=== PATIENT | female | born 1955 | race Caucasian/White ===

== ENCOUNTER 2019-11-11 09:57 | Inpatient (IN) | payer BC ==
[~2019-11-11] VITALS: Ht 167.6 cm; Wt 157.9 kg
[2019-12-22] MEDS ORDERED: GLUCOPHAGE500 MG/TAB PO (10:48)
[2019-12-22] MEDS ORDERED: K-TAB20 PO (10:49)
[2019-12-22] MEDS ORDERED: COZAAR 50MG50 MG/TAB PO (10:52)
[2019-12-22] MEDS ORDERED: NORVASC 5MG5 MG/TAB PO (10:52)
[2019-12-22] MEDS ORDERED: HCTZ 25MG TAB25 MG PO (10:52)
[2019-12-22] MEDS ORDERED: ARMOUR THYROID15 MG PO (10:53)
[2019-12-22] MEDS ORDERED: OZEMPIC0.25 MG/0. SQ (10:54)
[2019-12-25] MEDS ORDERED: LEVOXYL0.15 MG PO (14:44)
[2019-12-25] MEDS ORDERED: MAGNESIUM500 MG PO (14:45)
[2019-12-25] MEDS ORDERED: VITAMIN D31000 I1 (14:47)
[2019-12-25] MEDS ORDERED: ASPIRIN 32325 MG/TAB PO (15:19)
[2019-12-25] MEDS ORDERED: SENOKOT8.6 MG PO (15:20)
[2019-12-29] MEDS ORDERED: INVANZ INJ1 G/VIAL IV (15:54)
[2019-12-29] MEDS ORDERED: NORCO 325 MG-7.1 TAB PO (16:00)
[2019-12-29] MEDS ORDERED: COZAAR 50MG50 MG/TAB PO (21:10)
[2019-12-29] MEDS ORDERED: NORVASC 5MG5 MG/TAB PO (21:10)
[2019-12-30] MEDS ORDERED: OZEMPIC0.25 MG/0. SQ ×2 (06:29→06:40)
[2020-01-06] MEDS ORDERED: INVANZ INJ1 G/VIAL IV (14:43)
[2020-01-08] MEDS ORDERED: FERRO-TIME325 MG PO (11:15)
[2020-01-08] MEDS ORDERED: TYLENOL 325MG325 MG PO (11:16)
[2020-01-08] MEDS ORDERED: ASPIRIN 32325 MG/TA1 PO (11:16)
[2020-01-08] MEDS ORDERED: MEN'S ONE DAIL1 EACH PO (11:17)
[2020-01-08] MEDS ORDERED: ZINC OXIDE 28GM TOP (11:17)
[2020-01-08] MEDS ORDERED: Desenex/Lotrimin AF TP (11:17)
[2020-01-08] MEDS ORDERED: NORCO 325 MG-51 TAB PO (11:22)
[2020-06-06] VITALS (9 sets, daily range): BP systolic 112–169; BP diastolic 61–82; PULSE 63–79; TEMP 97.5–98.5
[2020-06-06] MEDS ORDERED: HCTZ 25MG TAB25 MG PO (12:38)
[2020-06-06] MEDS ORDERED: CEPHALEXIN500 M1 PO (12:38)
[2020-06-06] MEDS ORDERED: SYNTHROID 0.10.15 MG PO (12:39)
[2020-06-06] MEDS ORDERED: COZAAR 50MG50 MG/TAB PO (12:39)
[2020-06-06] MEDS ORDERED: K-DUR 10 MEQ T10 MEQ PO (12:40)
[2020-06-06] MEDS ORDERED: GLUCOPHAGE500 MG/TAB PO (12:41)
--- NOTE | 2020-06-06 12:56 | NUR ---
Patient ate a pancake this morning at 0800. Andrea Grimes CRNA is notified and surgery will be delayed until 1600. Message is left for Dr. Hobbs on his cell phone to notify. Patient's COVID19 test has not yet resulted. Dr. Hobbs and Andrea Grimes are notified of this as well. Blood glucose is 212 pre-op and Andrea Grimes is notified. Orders received for LDSS insulin.
[2020-06-07] VITALS (20 sets, daily range): BP systolic 104–142; BP diastolic 55–87; PULSE 65–113; TEMP 97.6–98.8
[2020-06-07 06:32] LABS: HEMATOCRIT 26.8 % (37.0-47.0); HEMOGLOBIN 7.7 g/dl (12.5-16.0)
--- NOTE | 2020-06-07 10:09 | NUR ---
PATIENT RESTING IN BED. NEW 20 GAUGE IV WAS STARTED BY THIS NURSE FOR BLOOD ADMINISTRATION. BLOOD TRANSFUSION STARTED AND INFUSING AT 60 ML/HR. PATIENT TOLERATING WELL. PATIENT DENIES ANY PAIN THIS MORNING. POSITIVE PEDAL PULSES EQUAL BILATERALLY. CAP REFILL <3 SECONDS. CMS INTACT. TRACE EDEMA TO BLE NOTED. RIGHT HIP OCCLUSIVE DRESSING IN CD&I WITH ICE PACK IN PLACE. EDEMA TO RIGHT HIP NOTED. SCD TO LLE. CALL LIGHT WITHIN REACH.
--- NOTE | 2020-06-07 10:24 | NUR ---
PATIENT TOLERATING BLOOD TRANSFUSION WITHOUT ANY ADVERSE REACTIONS. VITALS STABLE. TRANSFUSION RATE INCREASED TO 120 ML/HR. WILL CONTINUE TO MONITOR.
--- NOTE | 2020-06-07 10:39 | NUR ---
TRANSFUSION RATE AT 120ML/HR. PATIENT TOLERATING WELL. PATIENT DROWSY AND TAKING A NAP. SNORING NOTED WHEN PATIENT FELL ASLEEP AND O2 SAT FELL TO 88%. PATIENT PLACED ON 1L OF OXYGEN VIA NASAL CANNULA TO NAP. VSS. DREW HOSE APPLIED TO BLE. CALL LIGHT WITHIN REACH. PATIENT DENIES ANY NEEDS AT THIS TIME.
--- NOTE | 2020-06-07 11:19 | NUR ---
First visit from the brake repairer air. No needs right now.
--- NOTE | 2020-06-07 12:15 | NUR ---
PATIENT ASSISTED UP TO THE BATHROOM. PATIENT DENIES PAIN AT THIS TIME. PATIENT IS TEARFUL AND OVERWHELMED WITH EVERYTHING GOING ON AND HER PREVISOU SURGERY COMPLICATIONS. PATIENT ASSISTED BACK TO BED. PATIENT IS SBA. PATIENT RECONNECTED TO VITALS MONITOR FOR BLOOD TRANSFUSION. PATIENT IS NOW PASSING FLATUS. CALL LIGHT WITHIN REACH. PATIENT DENIES ANY OTHER NEEDS AT THIS TIME.
--- NOTE | 2020-06-07 13:34 | NUR ---
BLOOD TRANSFUSION COMPLETE. PATIENT TOLERATED WELL WITHOUT ADVERSE REACTION. NORMAL SALINE RUNNING AND FLUSHING IV LINE.
--- NOTE | 2020-06-07 14:54 | NUR ---
SECOND UNIT OF PRBC STARTED AND TRANFUSING AT 60ML/HR. NURSE PRESENT AT THE BEDSIDE.
--- NOTE | 2020-06-07 15:11 | NUR ---
PATIENT TOLERATING BLOOD TRANSFUSION WITHOUT ANY ADVERSE REACTIONS. TRANFUSION RATE INCREASED TO 120 ML/HR. WILL CONTINUE TO MONITOR.
--- NOTE | 2020-06-07 17:34 | NUR ---
PATIENT BLOOD TRANSFUSION COMPLETE. PATIENT TOLERATED WELL WITHOUT ADVERSE REACTION.
[2020-06-07 19:00] LABS: HEMATOCRIT 28.5 % (37.0-47.0); HEMOGLOBIN 8.5 g/dl (12.5-16.0)
--- NOTE | 2020-06-07 20:00 | NUR ---
Pt currently resting in bed. Pt ambulated to the restroom well. Pt has her call light within reach.
--- NOTE | 2020-06-07 22:00 | NUR ---
Pt was given a snack at this time pt has no other concerns at this time. Pt has her call light within reach.
[2020-06-08 03:34] VITALS: BP 157/71; PULSE 79; TEMP 97.1
--- NOTE | 2020-06-08 06:21 | NUR ---
Pt currently resting in bed.Pt has no complaints of pain at this time. Pt has her call light within reach and her bed is in lowest position.
[2020-06-08 06:22] LABS: HEMATOCRIT 29.7 % (37.0-47.0); HEMOGLOBIN 8.8 g/dl (12.5-16.0)
[2020-06-08 07:25] VITALS: BP 140/66; PULSE 74; TEMP 98.5
--- NOTE | 2020-06-08 07:25 | NUR ---
Shift assessment complete. Pt awake and oriented sitting up in bed. 2 INT sites in right forearm, both free from swelling and redness. Dressing on right hip, clean, dry, and intact with 2 ice bags. DREW on left legd and pt took both SCDs off during the night. Pt states "I will get them back on as soon as I get up and have a BM." Pt denies any pain at this time and has no further needs. Call light is within reach.
[2020-06-08 10:09] VITALS: BP 138/67; PULSE 65; TEMP 97.6
[2020-06-08 11:54] LABS: BASO # 0.1 (0.0-0.2); BASO % 0.6 % (0.0-2.0); EOS # 0.1 (0.0-0.7); EOS % 0.8 % (0-4.0); GRAN # 9.4 (1.4-6.5); GRAN % 66.1 % (42.2-75.2); LYMPH # 3.3 (1.2-3.4); LYMPH % 23.3 % (20.0-51.0); MEAN CELL VOLUME 81 fl (80.0-100.0); MEAN CORPUSCULAR HEMOGLOBIN 23 pg (27.0-31.0); MEAN CORPUSCULAR HGB CONC 29 g/dl (33.0-37.0); MEAN PLATELET VOLUME 10.5 fl (7.4-10.4); MONO # 1.2 (0.1-0.6); MONO % 8.6 % (1.7-9.3); PLATELET COUNT 396 K/mm3 (130-400); RED BLOOD COUNT 3.81 M/mm3 (4.10-5.30); REDCELL DISTRIBUTION WIDTH-CV 16.5 % (11.5-14.5)
[2020-06-08 12:12] LABS: ALBUMIN 3.4 gm/dL (3.5-5.0); BILIRUBIN,TOTAL 0.8 mg/dL (0.0-1.0); CALCIUM 8.6 mg/dL (8.4-10.2); CREATININE, serum 0.68 (0.52-1.25); TOTAL PROTEIN 6.5 gm/dL (6.4-8.2)
--- NOTE | 2020-06-08 12:44 | NUR ---
Vancomycin Initial Dosing Pharmacy Note Ordering provider: Harshal Hobbs MD Indication/duration: Hip joint infection LABS: eCrCl ~ 100 mL/min, SCr 0.68 mg/dL, BMI 56 Recommendation: Loading dose: 2 grams reloaded 06/08/20 @ 13:00 Maintenance dose: 1.5 grams every 12 hours Trough goal: 15-20 ug/mL Pharmacy will continue to follow.
[2020-06-08 12:47] LABS: C-REACTIVE PROTEIN 1.7 mg/dL (0.0-0.9)
[2020-06-08 15:51] VITALS: BP 119/63; PULSE 76; TEMP 97.4
--- NOTE | 2020-06-08 18:44 | NUR ---
Patient has done well throughout the day, Has been up to restroom with stand by assist, steady gait with walker. Patient denies pain throughout the day. IV restarted to left AC, discontinued IVs to RAC and right forarm. Patient denies further needs at this time. Dressing to left hip changed this afternoon, cortes intact with sutures also in place. Patient having moderate amount of drainage from incision. Dressing changed to xeroform, gauze, ABD and foam tape. Patient denies further needs at this time. Reported off to production supervisor off shift.
--- NOTE | 2020-06-08 19:30 | NUR ---
RECEIVED CHANGE OF SHIFT REPORT FROM DAYSHIFT NURSE. SALINE LOCK TO LAC INTACT AND CLEAR. PATIENT DENIES ANY NEEDS AT TIME OF REPORT. DRSG CHANGE BY NURSE, PATIENT TOLERATED WELL. ICE TO R HIP.
--- NOTE | 2020-06-08 19:34 | NUR ---
UP WITH WALKER, ROM/STRENGTH DECREASED D/T R HIP SURGERY, PATIENT DENIES NUMBNESS/TINGLING TO EXTREMITIES. DENIES CHESTPAIN/SHORTNESS OF BREATH AT THIS TIME.
[2020-06-08 20:47] VITALS: BP 138/69; PULSE 74; TEMP 98.1
[2020-06-09] VITALS (7 sets, daily range): BP systolic 107–157; BP diastolic 58–97; PULSE 62–115; TEMP 97.8–98.9
[2020-06-09 06:24] LABS: HEMATOCRIT 29.5 % (37.0-47.0); HEMOGLOBIN 8.7 g/dl (12.5-16.0)
--- NOTE | 2020-06-09 07:20 | NUR ---
CHANGE OF SHIFT REPORT GIVEN TO DAY SHIFT NURSEEBEN.
--- NOTE | 2020-06-09 08:00 | NUR ---
Patient sitting up on edge of bed. Alert and oriented x 3. Assessment complete. Denies pain at this time. Occlusive dressing to left hip intact. INT to LAC without complications. Denies further needs at this time.
--- NOTE | 2020-06-09 09:15 | NUR ---
Client Sales And Service Officer met with the patient to complete initial intake. The patient lives in [place] with her , Jay. The patient has a cane and walker and is independent with ADLs. The patient's PCP is Dr. Marrero. [facility] [place]. The patient does not have advanced directives in the EMR but states they are complete and designate Jay. The patient plans to return home at discharge with services for home IV antiobiotics. The patient has had home IV antiobiotics in the past and would like to use the [employer] home health agency and same IV antibiotic infusion company. The patient to be getting a PICC later this day. SW contacted the patient's , Jay to discuss the discharge plan. Jay states they used [facility] out of [place]. SW looked at notes from last admission and they used [facility]. Referrals faxed. PT/OT ordered.
--- NOTE | 2020-06-09 09:20 | NUR ---
Patient called out to nurses station, states dressing is coming off of left hip. Redressed incision site with xeroform, gauze, abd and foam tape. Dressing had moderate amount of bloody drainage.
--- NOTE | 2020-06-09 11:08 | NUR ---
Aircraft Mechanic Armament contacted [facility] regarding the [facility]. She will contact this SW regarding acceptance once the team reviews the referral. The fax # . CHAPO contacted Trevor with [facility] # . Trevor will check the patient's insurance then inform CHAPO. SW inquired about providing the PICC dressing changes for the MALT ROASTER. They will provide the dressing kit for the MALT ROASTER. If they need another during the week they need to contact Trevor. The fax # . CHAPO collaborated the above information with the patient's nurse.
--- NOTE | 2020-06-09 11:45 | NUR ---
Follow up visit from the supervisor show operations. No needs right now.
--- NOTE | 2020-06-09 16:01 | NUR ---
Picc line placed by Adri
--- NOTE | 2020-06-09 18:37 | NUR ---
Patient has done well throughout the day, continued to denies pain throughout the day. Has been up to recliner throughout the day. Occlusive dressing remains intact. PICC line to DEBBIE without complications. Denies further needs at this time. Will report off to film processing shift supervisor.
--- NOTE | 2020-06-09 19:00 | NUR ---
RECEIVED CHANGE OF SHIFT REPORT FROM DAY SHIFT NURSE. PATIENT SLEEPING WHILE UP IN CHAIR DURING REPORT. PICC IN PLACE.
--- NOTE | 2020-06-09 20:00 | NUR ---
DECREASED ROM/STRENGTH TO RLE D/T SURGERY. DENIES NUMBNESS/TINGLING TO EXTREMITIES. DENIES CHEST PAIN/SHORTNESS OF BREATH. DENIES DISCOMFORT AT THIS TIME AND N/V. PICC IN PLACE.
[2020-06-10 03:33] VITALS: BP 160/89; PULSE 66; TEMP 97.6
--- NOTE | 2020-06-10 05:12 | NUR ---
RIGHT HIP DRESSING CHANGED D/T MED/DARK RED DRAINAGE FROM RIGHT HIP THAT PATIENT REPORTED HAD DRAINED WHILE VOIDING, OBSERVED MODERATE AMT RED DRAINAGE ON FLOOR, ALSO ON TOILET RING SEAT. PATIENT DENIES PAIN/DISCOMFORT TO RIGHT HIP AREA. NEW DRESSING APPLIED OF XEROFORM/4X4 GAUZE/ABD COVERED WITH FOAM TAPE, OBSERVED NO ACTIVE DRAINAGE FROM RIGHT HIP INCISION W/NO REDNESS OR SWELLING TO SURROUNDING SKIN, SKIN TEMP WARM, NONTENDER.
[2020-06-10 07:12] VITALS: BP 145/75; PULSE 68; TEMP 98.2
--- NOTE | 2020-06-10 07:41 | NUR ---
CHANGE OF SHIFT REPORT GIVEN TO DAY SHIFT NURSEDEYSI.
--- NOTE | 2020-06-10 08:00 | NUR ---
PATIENT IS A&O. VSS. DENIES PAIN. FOOD AND BEVERAGE ORDER CLERK NURSE REPORTED DRAINAGE FROM RIGHT HIP. RIGHT HIP DRESSING WAS CHANGED BEFORE SHIFT CHANGE WITH 4X4'S AND OCCLUSIVE TAPE. WOUND CULTURES PENDING. TTWB TO RLE. PATIENT IS STAND BY ASSIST. GAIT STEADY. HEAD TO TOE ASSESSMENT COMPLETE. NO C/O N/V. TOLERATING ADA DIET. BS ACHS. AM MEDS GIVEN. NO OTHER NEEDS. CALL LIGHT IN REACH.
--- NOTE | 2020-06-10 08:21 | NUR ---
Carlyn from [email or web address] [employer] reports the patient's insurance will cover 100% of the patient's antibiotics.
[2020-06-10 12:13] VITALS: BP 138/68; PULSE 76; TEMP 98.3
--- NOTE | 2020-06-10 14:15 | NUR ---
AUGUSTO FROM [facility], CALLED AFTER TALKING WITH LAB. SOUNDS LIKE THE OR CULTURES WERE NOT COMPLETED AND SENT OFF PROPERLY. ONLY THE GRAM STAIN AND FUNGAL CULTURES (SENT TO [facility]) WERE DONE. FUNGAL CULTURES STILL PENDING. TO COME SEE PATIENT LATER JL
[2020-06-10 15:01] VITALS: BP 131/64; PULSE 72; TEMP 98.6
--- NOTE | 2020-06-10 15:21 | NUR ---
[facility] with [facility] this Relief Cook regarding the patient's insurance. Leon states that [facility] denied [facility] due to the patient having Medicare as primary. The private pay rate for a nurse is $150 an hour. CHAPO met with the patient to discuss insurance and the [facility] information. The patient reports that she has not finished her social security application so she is not signed up for Medicare. The patient to contact her insurance to correct the information. CHAPO revisted the discharge plan and her need for IV antibiotics. The patient is not willing to private pay for a nurse from [facility]. She would rather just have her antibiotic at [facility] in [place]. CHAPO contacted the IV infusion department [phone] and faxed referral to . Brit at [place] did receive the referral. The patient's culture's are not back from the lab so it is now known which antibotic and dose is needed. Update: The patient contacted [facility] and states that they will cover [facility]. CHAPO contacted Leon with [facility]. She will check the insurance benefit again. CHAPO discussed the plan with the patient. The patient is agreeable to going to [place] for her IV antibiotics if the HOUSING SPECIALIST cannot get approval for [facility]. Weekend CHAPO to follow up with [facility] to inquire about insurance acceptance. If they can accept, contact [facility] and send orders to both. If [facility] cannot be used, the patient will go to [facility] for her IV antibiotic. There will need to be orders for the antibiotic, duration, dose, PICC line dressing changes, and any labs that then to be drawn and when and where to send them. CHAPO collaborated the above information with the patient's nurse.
--- NOTE | 2020-06-10 16:30 | NUR ---
AT BEDSIDE. REPORTED OFF TO ROSIE SALGUERO.
[2020-06-10 19:18] VITALS: BP 139/90; PULSE 64; TEMP 98.8
--- NOTE | 2020-06-10 20:00 | NUR ---
Received report from ROSIE Franco. Pt is currently sitting up in the chair eating her dinner. Pt has no complaints at this time. She has her call light within reach.
--- NOTE | 2020-06-10 22:00 | NUR ---
Pt has been ambulating from the bed and to the restroom. Pt still has no complaints of pain. Pt dressing is clean dry and intact. Pt has her call light within reach.
[2020-06-11] VITALS (7 sets, daily range): BP systolic 137–156; BP diastolic 68–86; PULSE 65–100; TEMP 97.3–99
--- NOTE | 2020-06-11 01:34 | NUR ---
Pt currently sleeping in bed. Pt did wake up while vitals were being done and requested some fresh water at this time. Pt has her call light within reach.
--- NOTE | 2020-06-11 08:00 | NUR ---
PATIENT IS A&O. VSS. PATIENT MOVING AROUND IN ROOM INDEPENDENTLY WITH WALKER. REMOVED HIP DRESSING, NOTED MODERATE, SEROSANGUANOUS DRAINAGE TO 4X4'S GAUZE. RIGHT HIP INCISION IS WELL APPROXIMATED WITH STAPLE & TENSION SUTURES INPLACE. APPLIED 4X4'S & OCCLUSIVE TAPE. PATIENT SITTING UP IN BEDSIDE CHAIR. NO C/O PAIN. NOTED +2 EDEMA TO RIGHT HIP, POST OP SWELLING IS STABLE AND UNCHANGED. TTWB TO RLE. HEAD TO TOE ASSESSMENT WNL. AM MEDS GIVEN. BREAKFAST TRAY AT BEDSIDE. IV ABX INFUSING INTO RIGHT UPPER ARM PICC. NO OTHER NEEDS. CALL LIGHT IN REACH.
--- NOTE | 2020-06-11 11:24 | NUR ---
AUGUSTO WITH ORTHO AT BEDSIDE. NO CHANGES
--- NOTE | 2020-06-11 16:04 | NUR ---
SW update confirmed [employer] can be billed with [facility]. They have worked with patient previously. Authorizaton Pending, willing to accept Saturday. Will need to fax orders and medications.
--- NOTE | 2020-06-11 22:00 | NUR ---
PT UP IN RECLINER MOST OF EVENING. UP TO BATHROOM WITH USE OF WALKER AND TTWB TO RIGHT FOOT. DENIES PAIN. DRESSING TO RIGHT HIP CLEAN, DRY AND INTACT. BILAT PULSES IN FEET STRONG AND PALPABLE. BLOOD SUGAR AT HS WAS 218 AND RECEIVED 2UNITS NOVOLOG. PICC LINE FLUSHES WITH NO DIFFICULTY. VERY PLEASANT.
[2020-06-12 04:32] VITALS: BP 148/80; PULSE 64; TEMP 98.3
--- NOTE | 2020-06-12 06:07 | NUR ---
PT UP TO BR WITH USE OF WALKER. STEADY GAIT. DENIES PAIN. REPORTS SHE HAD A GOOD NIGHT. DRESSING REMAINS CLEAN, DRY AND INTACT. CALL LIGHT WITHIN REACH.
[2020-06-12 07:14] LABS: BASO % 0.4 % (0.0-2.0); EOS # 0.5 (0.0-0.7); EOS % 5.1 % (0-4.0); GRAN # 6.2 (1.4-6.5); GRAN % 68.2 % (42.2-75.2); LYMPH # 1.6 (1.2-3.4); LYMPH % 17.6 % (20.0-51.0); MEAN CELL VOLUME 79 fl (80.0-100.0); MEAN CORPUSCULAR HGB CONC 29 g/dl (33.0-37.0); MEAN PLATELET VOLUME 10.6 fl (7.4-10.4); MONO # 0.8 (0.1-0.6); MONO % 8.3 % (1.7-9.3); PLATELET COUNT 309 K/mm3 (130-400); RED BLOOD COUNT 3.84 M/mm3 (4.10-5.30); REDCELL DISTRIBUTION WIDTH-CV 17.2 % (11.5-14.5)
[2020-06-12 07:25] LABS: HEMATOCRIT 30.4 % (37.0-47.0); HEMOGLOBIN 8.8 g/dl (12.5-16.0); MEAN CORPUSCULAR HEMOGLOBIN 23 pg (27.0-31.0)
[2020-06-12 07:26] LABS: ALBUMIN 3.3 gm/dL (3.5-5.0); BILIRUBIN,TOTAL 0.6 mg/dL (0.0-1.0); CALCIUM 8.7 mg/dL (8.4-10.2); CREATININE, serum 0.6 (0.52-1.25); TOTAL PROTEIN 6.2 gm/dL (6.4-8.2)
[2020-06-12 07:35] VITALS: BP 147/77; PULSE 71; TEMP 98.4
[2020-06-12] MEDS ORDERED: ASPI325T6 PO (10:14)
[2020-06-12] MEDS ORDERED: TYLENOL 500MG500 MG PO (10:16)
[2020-06-12] MEDS ORDERED: ROXICODONE 55 MG/TAB PO (10:16)
[2020-06-12 11:02] VITALS: BP 145/82; PULSE 71; TEMP 98.8
[2020-06-12 16:20] VITALS: BP 141/67; PULSE 70; TEMP 98.2
--- NOTE | 2020-06-12 18:04 | NUR ---
Patient resting in bed at this time. Patient remains alert and oriented, answers questions appropriately. Patient has denied pain today, no complaints of nausea or loose stools. Patient is independent in the room with her walker. Bulky dressing to right hip in place, gauze and occlusive tape dressing in place. A small amount of drainage leaked with position change, dressing reinforced with gauze, ABD pad, tape. Patient denies needs at this time, call light within reach.
--- NOTE | 2020-06-12 20:00 | NUR ---
Report received, assumed care for past due accounts clerk. Assessment complete. VS stable. A&Ox3. Denies pain/nausea/shortness of breath. Dressing change complete due to complete saturation of current one. [place]/retention sutures intact. No redness to site. Applied xerofoam/4x4s/ABDs/foam tape per dr order. Plan of care discussed for this shift to include HS meds/calling for needs/concerns. Verbalizes understanding/denies questions/concerns. Call light in reach. WIll monitor.
[2020-06-12 20:33] VITALS: BP 132/87; PULSE 71; TEMP 98.5
[2020-06-13 00:04] VITALS: BP 147/75; PULSE 73; TEMP 97.9
--- NOTE | 2020-06-13 00:30 | NUR ---
Resting in bed watching TV. Denies pain/nausea/shortness of breath. VS stable. PICC to right upper arm flushes without difficulty. Denies needs. Call light in reach. Will monitor.
[2020-06-13 05:06] VITALS: BP 145/73; PULSE 72; TEMP 98.1
--- NOTE | 2020-06-13 05:45 | NUR ---
PT slept off and on this shift. Denied pain/nausea/shortness of breath. VS remained stable. PICC line to right upper arm flushes without difficulty-good blood return. Voiding without difficulty. Call light in reach. Will monitor.
[2020-06-13 07:14] VITALS: BP 152/66; PULSE 69; TEMP 97.7
--- NOTE | 2020-06-13 08:00 | NUR ---
PATIENT IS A&O. VSS. DENIES PAIN IN RLE. RIGHT HIP DRESSING IS CD&I WITH OCCLUSIVE TAPE. PATIENT INDEPENDENT IN ROOM WITH WALKER. TTWB TO RLE. PT/OT CONSULTED. NO C/O N/V. IV ABX INFUSING INTO RIGHT UPPER ARM PICC. BREAKFAST TRAY AT BEDSIDE. AM MEDS GIVEN. HEAD TO TOE ASSESSMENT WNL. NO OTHER NEEDS AT THIS TIME. CALL LIGHT IN REACH. PATIENT HOPING TO DISCHARGE HOME WITH HOME HEALTH LATER TODAY.
[2020-06-13 11:31] VITALS: BP 133/56; PULSE 63; TEMP 97.9
--- NOTE | 2020-06-13 13:33 | NUR ---
The patient discharged home today, 06/13 with [facility] (nursing and wound care) in [facility] for IV antibiotics. Discharge orders faxed. The patient chose [facility] agency in [facility] because she has had them in the past. Leon with [facility] reports they received authorization will be able to start services 06/14. Trevor with [facility] will be able to deliver the patient's antibiotics. Trevor reports he will be able to either physically assist or via telehealth with the first dose this night at 9:00pm this day. The patient's has experience with IV antiobiotics and will assist the patient. [facility] will draw labs and do PICC line dressing changes. [facility] will provide the dressing change supplies. SW contacted [facility] for looking at the referral for the patient and informed them the patient decided to go home with [facility]. There are no additional needs at this time.
--- NOTE | 2020-06-13 13:55 | NUR ---
PATIENT DISCHARGING HOME VIA WC TO PERSONAL VEHICLE WITH . GAVE DISCHARGE INSTRUCTIONS, CHANGED RIGHT HIP DRESSING, SENT EXTRA DRESSING SUPPLIES, GAVE BOTH IV ANTIBIOTIC PRIOR TO DISCHARGE, AND DISCUSSED F/U APTS. ANSWERED ALL QUESTIONS/CONCERNS. PATIENT DISCHARGED WITH RIGHT UPPER ARM PICC LINE INPLACE, WRAPPED WITH ACEWRAP. ESCORTED OUT AND DISCHARGED.
== END 2020-06-13 13:55 | disposition home health service (06) | DRG 465 ==
LOC: JCC 12-01 09:45 → SURG 06-06 09:45 → INPTSU 06-06 11:54 → SURG 06-06 11:54
PROVIDERS: Internal Medicine Infectious Disease; Physician Assistant; ADMIT Orthopaedic Surgery
PROC: 0JBL0ZZ Excision of Right Upper Leg Subcutaneous Tissue and Fascia, Open Approach (ICD-10-PCS; 2020-06-06)
PROC: 02HV33Z Insertion of Infusion Device into Superior Vena Cava, Percutaneous Approach (ICD-10-PCS; 2020-06-06)
PROC: 0JBM0ZZ Excision of Left Upper Leg Subcutaneous Tissue and Fascia, Open Approach (ICD-10-PCS; principal; 2020-06-06 15:00)
DX: T84.51XA Infection and inflammatory reaction due to internal right hip prosthesis, initial encounter (principal); Z90.710 Acquired absence of both cervix and uterus; Z90.49 Acquired absence of other specified parts of digestive tract; I10 Essential (primary) hypertension; E11.9 Type 2 diabetes mellitus without complications; E03.9 Hypothyroidism, unspecified; Z96.651 Presence of right artificial knee joint; Z96.641 Presence of right artificial hip joint
CPT/HCPCS: A9284; C1751; J0692; J0696; J1100; J1815; J2250; J2405; J2704; J3370; J7030; J7050; J7120; P9016

== ENCOUNTER 2019-12-22 10:23 | Outpatient (CLI) | payer BC ==
[~2019-12-22] VITALS: Ht 167.6 cm; Wt 160.0 kg
[2019-12-22] MEDS ORDERED: GLUCOPHAGE500 MG/TAB PO (10:48)
[2019-12-22] MEDS ORDERED: K-TAB20 PO (10:49)
[2019-12-22] MEDS ORDERED: NORVASC 5MG5 MG/TAB PO (10:52)
[2019-12-22] MEDS ORDERED: HCTZ 25MG TAB25 MG PO (10:52)
[2019-12-22] MEDS ORDERED: COZAAR 50MG50 MG/TAB PO (10:52)
[2019-12-22] MEDS ORDERED: ARMOUR THYROID15 MG PO (10:53)
[2019-12-22] MEDS ORDERED: OZEMPIC0.25 MG/0. SQ (10:54)
[2019-12-22 11:29] VITALS: BP 138/74; PULSE 112; TEMP 98
--- NOTE | 2019-12-22 12:00 | NUR ---
patient teaching by Adri VELEZ on Picc line, area is wrapped with kishore. pt up in w/c with standby assist and discharged via w/c to car with huband
== END 2019-12-22 12:00 | disposition home or self-care (01) ==
LOC: EUO 10:23
DX: Z95.828 Presence of other vascular implants and grafts (principal); Z96.641 Presence of right artificial hip joint
CPT/HCPCS: C1751

== ENCOUNTER 2019-12-25 14:20 | Inpatient (IN) | payer BC ==
[~2019-12-25] VITALS: Ht 167.6 cm; Wt 155.7 kg
[~2019-12-25 14:20] MED LIST: ARMOUR THYROID15 MG PO; COZAAR 50MG50 MG/TAB PO; GLUCOPHAGE500 MG/TAB PO; HCTZ 25MG TAB25 MG PO; K-TAB20 PO; NORVASC 5MG5 MG/TAB PO; OZEMPIC0.25 MG/0. SQ
[2019-12-25] MEDS ORDERED: LEVOXYL0.15 MG PO (14:44)
[2019-12-25] MEDS ORDERED: MAGNESIUM500 MG PO (14:45)
[2019-12-25] MEDS ORDERED: VITAMIN D31000 I1 (14:47)
[2019-12-25] MEDS ORDERED: ASPIRIN 32325 MG/TAB PO (15:19)
[2019-12-25] MEDS ORDERED: SENOKOT8.6 MG PO (15:20)
[2019-12-25 15:29] VITALS: BP 145/67; PULSE 80; TEMP 98.9
--- NOTE | 2019-12-25 15:47 | NUR ---
ASSESSMENTS COMPLETE,VSS, PT SITTING UP IN RECLINER. JOSEFA CLIFTON PA IN TO SEE PT. CONTACTED DR. MCHUGH AND TROY WOODARD.
--- NOTE | 2019-12-25 16:11 | NUR ---
REINFORCED DRESSING WITH ABD AND HYPAFIX TAPE AFTER TROY WOODARD INSPECTED WOUND.
[2019-12-25 16:28] LABS: BASO # 0.1 (0.0-0.2); BASO % 0.3 % (0.0-2.0); EOS # 0.1 (0.0-0.7); EOS % 0.7 % (0-4.0); GRAN # 11.1 (1.4-6.5); GRAN % 76.4 % (42.2-75.2); HEMOGLOBIN 10.3 g/dl (12.5-16.0); LYMPH % 13.8 % (20.0-51.0); MEAN CELL VOLUME 90 fl (80.0-100.0); MEAN CORPUSCULAR HEMOGLOBIN 27 pg (27.0-31.0); MEAN CORPUSCULAR HGB CONC 31 g/dl (33.0-37.0); MEAN PLATELET VOLUME 9.7 fl (7.4-10.4); MONO # 1.1 (0.1-0.6); MONO % 7.4 % (1.7-9.3); PLATELET COUNT 521 K/mm3 (130-400); RED BLOOD COUNT 3.77 M/mm3 (4.10-5.30); REDCELL DISTRIBUTION WIDTH-CV 14.7 % (11.5-14.5)
--- NOTE | 2019-12-25 16:29 | NUR ---
PICC LINE ASSESSED HAD POSITIVE BLOOD RETURN, CAPS CHANGED. PT TOLERATED WELL.
[2019-12-25 16:30] LABS: HEMATOCRIT 33.8 % (37.0-47.0)
[2019-12-25 16:34] LABS: INR 1.2 (0.8-3.0); PROTHROMBIN TIME 13.4 SECONDS (9.7-12.8)
[2019-12-25 16:47] LABS: ERYTHROCYTE SEDIMENTATION RATE 32 mm/hr (0-30)
[2019-12-25 16:48] LABS: ALBUMIN 3.1 gm/dL (3.5-5.0); BILIRUBIN,TOTAL 0.4 mg/dL (0.0-1.0); C-REACTIVE PROTEIN 4.9 mg/dL (0.0-0.9); CALCIUM 8.7 mg/dL (8.4-10.2); CREATININE, serum 0.53 (0.52-1.25); POTASSIUM 3.8 mmol/L (3.4-5.0); TOTAL PROTEIN 7.1 gm/dL (6.4-8.2)
[2019-12-25 16:53] LABS: PRE ALBUMIN 16.6 mg/dL (17.6-36.0)
--- NOTE | 2019-12-25 19:16 | NUR ---
report to ENOC VELEZ
[2019-12-25 19:47] LABS: MUCOUS Present /lpf; PH 6 (5-8); URINE APPEARANCE Clear; URINE BACTERIA None Seen /hpf; URINE BILIRUBIN Negative (NEGATIVE); URINE BLOOD Negative (NEGATIVE); URINE COLOR Yellow; URINE GLUCOSE Negative (NEGATIVE); URINE KETONE Negative (NEGATIVE); URINE LEUKOCYTE ESTERASE Trace (NEGATIVE); URINE NITRATE Negative (NEGATIVE); URINE PROTEIN(semi-quant) Negative (NEGATIVE); URINE RBC 0-2 /hpf; URINE UROBILINOGEN Negative (NEGATIVE)
[2019-12-25 19:49] VITALS: BP 141/57; PULSE 82; TEMP 99.5
--- NOTE | 2019-12-25 20:00 | NUR ---
Report received. 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 Assessment complete. A&Ox3. VS stable. Denies pain/shortness of breath/nausea. PICC to right upper arm-flushes without difficulty. Dressing to right hip-ABDs/tape-old drainage noted. Has been re-enforced. Right lower extremity noted to have +2 edema-scaling/flaking. Fresh ice pack applied. Plan of care discussed for NPO at midnight. Verbalizes understanding. Call light in reach. Will monitor.
[2019-12-25 20:36] LABS: COLLECTION METHOD CLEAN CATCH
[2019-12-26] VITALS (485 sets, daily range): BP systolic 86–591; BP diastolic 53–87; PULSE 68–93; TEMP 95.6–98.4; O2SAT 89–100
--- NOTE | 2019-12-26 06:39 | NUR ---
Rested off and on this shift. Received percocet for pain x2. No nausea/shortness of breath. VS remained stable. NPO since midnight. Voiding without difficulty. Denies needs. Call light in reach. Will monitor.
--- NOTE | 2019-12-26 08:30 | NUR ---
Patient resting in bed at this time. Patient is alert and oriented, answers questions appropriately. Dressing to right hip is intact, moderate amount of dranage visible. Patient reports pain is controlled at this time, is able to transfer to bedside commode with assist of one. Surgical consent signed, BHARGAVI mccloud. Patient denies further needs at this time, call light within reach.
--- NOTE | 2019-12-26 09:02 | NUR ---
Patient left the floor with pre op via bed.
[2019-12-26 15:58] LABS: ARTERIAL BLD GAS O2 SATURATION 98.1 % (92-100); ARTERIAL BLD GAS TCO2 CT 22.7; ARTERIAL BLOOD GAS BASE EXCESS -4.4 (-2-2); ARTERIAL BLOOD GAS HCO3 21.4 meq/L (22-26); ARTERIAL BLOOD GAS PCO2 42.4 mmHg (35-45); ARTERIAL BLOOD GAS pH 7.32 (7.35-7.45)
[2019-12-26 15:59] LABS: ARTERIAL BLOOD GAS PO2 128.8 mmHg (80-100)
[2019-12-26 16:09] LABS: MEAN CELL VOLUME 94 fl (80.0-100.0); MEAN CORPUSCULAR HGB CONC 31 g/dl (33.0-37.0); MEAN PLATELET VOLUME 10.1 fl (7.4-10.4); PLATELET COUNT 534 K/mm3 (130-400); REDCELL DISTRIBUTION WIDTH-CV 14.6 % (11.5-14.5)
[2019-12-26 16:13] LABS: HEMOGLOBIN 9.5 g/dl (12.5-16.0); MEAN CORPUSCULAR HEMOGLOBIN 29 pg (27.0-31.0)
[2019-12-26 16:26] LABS: ALBUMIN 2.2 gm/dL (3.5-5.0); BILIRUBIN,TOTAL 0.5 mg/dL (0.0-1.0); CALCIUM 7.6 mg/dL (8.4-10.2); CREATININE, serum 0.7 (0.52-1.25); POTASSIUM 3.8 mmol/L (3.4-5.0)
[2019-12-26 16:46] LABS: ANISOCYTOSIS 2+; BAND 4 % (0-10); LYMPHOCYTE 6 % (20.0-51.0); METAMYELOCYTE 1 % (0-0); MYELOCYTE 2 % (0-0); NEUTROPHILS 83 % (42.0-75.2); PLATELET ESTIMATE INCREASED (NORMAL)
--- NOTE | 2019-12-26 17:58 | NUR ---
PT ARRIVED FROM PACU, REPORT RECIEVED FROM KAILEE. PT C/O 05/07 PAIN NO NUMBNESS OR TINGLING ON LEFT LET, DRAIN AND WOUNDVAC IN PLACE, BP 101/68 AT THIS TIME WITH TEMP 95.6, WILL CONTINUE TO MONITOR AND UPDATE PROVIERS NEEDED 1 UNIT PRBC'S REMAINING TO ADMIN.
[2019-12-26 18:13] LABS: HEMATOCRIT 28.4 % (37.0-47.0); HEMOGLOBIN 8.9 g/dl (12.5-16.0)
--- NOTE | 2019-12-26 19:30 | NUR ---
Patient resting quietly in bed at this time. BP 86/63 with MAP of 68; other vitals within normal limits. Patient reports R hip and leg pain as 10/10. PRN dilauded administered and ice pack provided. Patient's is at the bedside. Wound vac and accordian drain present to the right hip; incision is covered with a tegaderm dressing and is clean, dry, and intact. Pedal and post tibial pulses are palpable and 2+. Some edema noted to the BLE. Drainage within accordian drain is bright red. A unit of blood is currently infusing to the red port of the right upper arm PICC; vancomycin is infusing to purple. Patient and family encouraged to ask questions; no further needs noted at this time. Will continue to monitor.
[2019-12-27] VITALS (702 sets, daily range): BP systolic 93–129; BP diastolic 42–67; PULSE 71–89; TEMP 97.5–98.5; O2SAT 83–100
[2019-12-27 01:01] LABS: HEMATOCRIT 22.2 % (37.0-47.0)
--- NOTE | 2019-12-27 01:59 | NUR ---
PT NOT ON BIPAP IT IS NOT NEEDED. SHE IS ON 3 LPM NC NILO WELL WITH NO DISTRESS NOTED AT THIS TIME.
--- NOTE | 2019-12-27 02:17 | NUR ---
Notified [facility] of patient's hemoglobin of 7.0 after receiving four units of blood. Patient's vitals are stable; she is asymptomatic. Received instructions to monitor and reassess labs in AM.
[2019-12-27 04:29] LABS: BASO # 0.1 (0.0-0.2); BASO % 0.4 % (0.0-2.0); GRAN # 18.2 (1.4-6.5); GRAN % 84.2 % (42.2-75.2); LYMPH # 1.5 (1.2-3.4); LYMPH % 6.9 % (20.0-51.0); MEAN CORPUSCULAR HGB CONC 32 g/dl (33.0-37.0); MEAN PLATELET VOLUME 9.9 fl (7.4-10.4); MONO # 1.4 (0.1-0.6); MONO % 6.6 % (1.7-9.3); RED BLOOD COUNT 3.09 M/mm3 (4.10-5.30); REDCELL DISTRIBUTION WIDTH-CV 15.1 % (11.5-14.5)
[2019-12-27 04:34] LABS: HEMATOCRIT 27.4 % (37.0-47.0); HEMOGLOBIN 8.8 g/dl (12.5-16.0); MEAN CELL VOLUME 89 fl (80.0-100.0); MEAN CORPUSCULAR HEMOGLOBIN 28 pg (27.0-31.0); PLATELET COUNT 383 K/mm3 (130-400)
[2019-12-27 04:39] LABS: CALCIUM 7.6 mg/dL (8.4-10.2); CREATININE, serum 0.81 (0.52-1.25); POTASSIUM 3.8 mmol/L (3.4-5.0)
--- NOTE | 2019-12-27 07:45 | NUR ---
Report given to ROSIE Rivero.
--- NOTE | 2019-12-27 11:56 | NUR ---
REPORT CALLED TO THEA VELEZ ON SURGICAL UNIT
[2019-12-27 12:26] LABS: HEMOGLOBIN 8.2 g/dl (12.5-16.0)
--- NOTE | 2019-12-27 12:27 | NUR ---
Plan to move to Surgical and Screen for IPR. SW met with patient about plan. Patient reports that she was talking with her PC about IPR. Patient reports that she resides in [place] with her spouse Jay . Patient shares that she uses a cane and that it is currently misplaced somewhere in the hospital. Patient shares that her is also the DPOA. Patient denies the use of any other DME. Patient shares that her choice would be to complete the IPR here and then go home. IPR needs to be screen for the patient. Will continue to follow
--- NOTE | 2019-12-27 13:21 | NUR ---
PT TRANSFERRED VIA BED TO SURGICAL ROOM 322. PT'S BELONGINGS TRANSFERRED WITH PATIENT. CONTACT MADE WITH STAFF UPON TRANSFER.
--- NOTE | 2019-12-27 17:20 | NUR ---
Patient received from ICU this afternoon from [facility]. Bedside commode used upon arrival 3 assist. Patient slow to move. Patient walker used & gaitbelt. Picc to Rue. Right hip wound vac to 125 mmg suction. Hemovac to compression. 2 tabs [place] for pain. I reviewed with her that we will avoid dilaudid and use po medication for pain, she was agreeable. Scds ble. Ice pack provided. Will jennifer.
[2019-12-27 18:27] LABS: HEMATOCRIT 24.3 % (37.0-47.0); HEMOGLOBIN 7.8 g/dl (12.5-16.0)
--- NOTE | 2019-12-27 19:45 | NUR ---
Report received. Assumed care for x ray technologist. Assessment complete. VS stable. A&Ox3. Denies pain/shortness of breath. States she is not nauseated but has no appetite and trying to eat makes her gag. Offered Ensure shake-will call when ready for it. Dressing to right hip-wound vac/tegaderm to 125mmg of suction. Hemovac drain to compression-scant bloody drainage. Plan of care discussed for this shift to include pain control/calling for needs. Requesting "a break" from SCDs. WIll remove for now. Denies any other questions/concerns. Call light in reach. Will monitor.
--- NOTE | 2019-12-28 03:00 | NUR ---
Resting in bed-watching TV. C/O pain to lower back. Rating pain 7/10 described as ache-norco given per dr order. Denies nausea/shortness of breath. VS have remained stable. Wound vac at 125mmg suction. Hemovac drainage bloody. Tolerating PO. REfused SCDs. Denies any other needs. Will monitor.
[2019-12-28 03:34] VITALS: BP 143/57; PULSE 110; TEMP 98.5
--- NOTE | 2019-12-28 05:00 | NUR ---
Guaman cath DCd at this time. Removed 10mls sterile water from balloon. Tip intact. Tolerated well. Will monitor.
--- NOTE | 2019-12-28 06:17 | NUR ---
Up to commode at this time with three assist/walker/gait belt.
[2019-12-28 06:54] LABS: BASO # 0.1 (0.0-0.2); BASO % 0.4 % (0.0-2.0); EOS # 0.1 (0.0-0.7); EOS % 0.4 % (0-4.0); GRAN # 13.6 (1.4-6.5); GRAN % 79.7 % (42.2-75.2); LYMPH # 1.7 (1.2-3.4); MEAN CELL VOLUME 92 fl (80.0-100.0); MEAN CORPUSCULAR HGB CONC 31 g/dl (33.0-37.0); MONO # 1.4 (0.1-0.6); MONO % 8.4 % (1.7-9.3); PLATELET COUNT 409 K/mm3 (130-400); RED BLOOD COUNT 2.77 M/mm3 (4.10-5.30); REDCELL DISTRIBUTION WIDTH-CV 15.3 % (11.5-14.5)
[2019-12-28 06:56] LABS: HEMATOCRIT 25.4 % (37.0-47.0); HEMOGLOBIN 7.9 g/dl (12.5-16.0); MEAN CORPUSCULAR HEMOGLOBIN 29 pg (27.0-31.0)
[2019-12-28 07:10] LABS: CREATININE, serum 1.04 (0.52-1.25); POTASSIUM 3.7 mmol/L (3.4-5.0)
[2019-12-28 07:29] VITALS: BP 117/40; PULSE 87; TEMP 97.9
--- NOTE | 2019-12-28 08:00 | NUR ---
Patient sittin up in bed, eating breakfast. Hemovac to right hip with bloody driange and wound vac to right hip noted. Picc line to DEBBIE. Edema to BLE +2 pitting. Denies further needs at this time.
--- NOTE | 2019-12-28 08:14 | NUR ---
Contacted Pharmacy about vanc trough level.
--- NOTE | 2019-12-28 08:51 | NUR ---
Vancomycin Follow-up Pharmacy Note Current regimen: VANCOMYCIN 2 G Q12H Vancomycin trough: 23.7 Adjustments: DECREASE TO 1.75G Q12H. TROUGH 12/28 @ 2130
--- NOTE | 2019-12-28 10:23 | NUR ---
Patient sitting up in recliner, was just up with physical therapy, requested pain medication, meds given per orders.
[2019-12-28 11:26] VITALS: BP 132/77; PULSE 80; TEMP 98.2
--- NOTE | 2019-12-28 12:33 | NUR ---
First visit from the rn international. No needs right now.
--- NOTE | 2019-12-28 15:29 | NUR ---
Vocal Artist spoke with Chelsy, IPR Director about consult. Chelsy advised they are able to accept, just waiting on insurance. SW to continue to follow.
[2019-12-28 15:34] VITALS: BP 149/89; PULSE 88; TEMP 98.6
[2019-12-28 15:43] VITALS: BP 141/62; PULSE 81; TEMP 98.2
--- NOTE | 2019-12-28 18:26 | NUR ---
Patient has done well throughout the day. Denies pain at this time. Hemovac continues to have bloody output. Wound vac maintained. PICC line to DEBBIE without complications. Denies further needs at this time. Will report off to maintenance mechanic 2nd shift.
[2019-12-28 19:20] VITALS: BP 103/82; PULSE 95; TEMP 99
--- NOTE | 2019-12-28 19:56 | NUR ---
Pt. sitting up in bed at this time. Pt. is A&OX3, assessment complete. PICC to rt. upper arm patent, Abx infusing per orders. Pt. rated pain at a 5 to rt. knee. Gave pain meds per orders. Dressing to rt. hip CDI, wound vac and hemovac noted with bloody drainage. Pt. denies further needs, call light within reach.
[2019-12-29] VITALS (11 sets, daily range): BP systolic 123–139; BP diastolic 62–90; PULSE 71–91; TEMP 97.4–98.6
--- NOTE | 2019-12-29 00:30 | NUR ---
PT STATES THAT SHE DOES NOT WEAR A CPAP. THEREFORE NO CPAP IS BROUGHT UP FOR HER AND SHE IS ON ROOM AIR NILO WELL WITH NO DISTRESS NOTED AT THIS TIME. WILL CONTTINUE TO MONITOR AND ASSESS
[2019-12-29 07:04] LABS: BASO # 0.1 (0.0-0.2); BASO % 0.6 % (0.0-2.0); EOS # 0.1 (0.0-0.7); GRAN # 8.7 (1.4-6.5); GRAN % 74.9 % (42.2-75.2); LYMPH # 1.6 (1.2-3.4); LYMPH % 13.6 % (20.0-51.0); MEAN CELL VOLUME 94 fl (80.0-100.0); MEAN CORPUSCULAR HGB CONC 31 g/dl (33.0-37.0); MEAN PLATELET VOLUME 9.9 fl (7.4-10.4); MONO # 1.1 (0.1-0.6); MONO % 9.3 % (1.7-9.3); PLATELET COUNT 365 K/mm3 (130-400); REDCELL DISTRIBUTION WIDTH-CV 15.7 % (11.5-14.5)
[2019-12-29 07:23] LABS: CALCIUM 7.8 mg/dL (8.4-10.2); CREATININE, serum 1.07 (0.52-1.25); POTASSIUM 3.3 mmol/L (3.4-5.0)
[2019-12-29 07:28] LABS: HEMATOCRIT 22.5 % (37.0-47.0); HEMOGLOBIN 6.9 g/dl (12.5-16.0); MEAN CORPUSCULAR HEMOGLOBIN 29 pg (27.0-31.0)
--- NOTE | 2019-12-29 07:35 | NUR ---
Notified VANCE Sharma of critical lab value
--- NOTE | 2019-12-29 07:50 | NUR ---
Patient in bed resting. Alert and oriented x 3. Assessment complete. Picc to Chelita without complications. Wound vac and hemovac to right hip. Hemovac with large amount of bloody drainage. Edema noted to BLE. Denies further needs at this time.
--- NOTE | 2019-12-29 09:30 | NUR ---
Dr. Montanez in to see patient. Wound vac changed, Hemovac discontinued. Rea with edges well approximated. Denies further needs at this time.
--- NOTE | 2019-12-29 09:30 | NUR ---
PICC intact right upper arm. With sterile technique right upper arm PICC dressing change done with insertion site cleansed with ChloraPrep 1, chlorhexidine impregnated disc applied, skin prep, StatLock, and Tegaderm applied. X-ray Tegaderm applied on top of dressing. No signs or symptoms of IV complications noted. No concerns voiced.
--- NOTE | 2019-12-29 10:09 | NUR ---
Chief Development Officer met with patient to review discharge plan. Plan is for [facility] upon discharge. CHRISTIAN Valentino Director advised that she has approval from patient's insurance. SW to continue to follow.
--- NOTE | 2019-12-29 14:19 | NUR ---
Patient up to bedside comode, stand by assist with walker. Denies further needs at this time.
[2019-12-29] MEDS ORDERED: INVANZ INJ1 G/VIAL IV (15:54)
[2019-12-29] MEDS ORDERED: NORCO 325 MG-7.1 TAB PO (16:00)
[2019-12-29] MEDS ORDERED: NORVASC 5MG5 MG/TAB PO (21:10)
[2019-12-29] MEDS ORDERED: COZAAR 50MG50 MG/TAB PO (21:10)
[2019-12-30] MEDS ORDERED: OZEMPIC0.25 MG/0. SQ ×2 (06:29→06:40)
== END 2019-12-29 18:07 | DRG 467 ==
LOC: SURG 14:20 → ICU 12-26 15:00 → SURG 12-27 13:14
PROVIDERS: Family Medicine; Orthopaedic Surgery; Physician Assistant; ADMIT Hospitalist
PROC: 0SR902A Replacement of Right Hip Joint with Metal on Polyethylene Synthetic Substitute, Uncemented, Open Approach (ICD-10-PCS; principal; 2019-12-26 10:00)
PROC: 0SP90JZ Removal of Synthetic Substitute from Right Hip Joint, Open Approach (ICD-10-PCS; 2019-12-26 10:00)
DX: T84.51XA Infection and inflammatory reaction due to internal right hip prosthesis, initial encounter (principal); Z68.43 Body mass index [BMI] 50.0-59.9, adult; T81.32XA Disruption of internal operation (surgical) wound, not elsewhere classified, initial encounter; D62 Acute posthemorrhagic anemia; E03.9 Hypothyroidism, unspecified; I10 Essential (primary) hypertension; E11.9 Type 2 diabetes mellitus without complications; Z96.651 Presence of right artificial knee joint; G89.29 Other chronic pain; B95.4 Other streptococcus as the cause of diseases classified elsewhere; B95.61 Methicillin susceptible Staphylococcus aureus infection as the cause of diseases classified elsewhere; M19.90 Unspecified osteoarthritis, unspecified site; E66.01 Morbid (severe) obesity due to excess calories; Y83.8 Other surgical procedures as the cause of abnormal reaction of the patient, or of later complication, without mention of misadventure at the time of the procedure; Z79.84 Long term (current) use of oral hypoglycemic drugs; Z79.82 Long term (current) use of aspirin; Z85.828 Personal history of other malignant neoplasm of skin; Z85.528 Personal history of other malignant neoplasm of kidney; R09.02 Hypoxemia; I95.81 Postprocedural hypotension; T41.45XA Adverse effect of unspecified anesthetic, initial encounter; E87.6 Hypokalemia
CPT/HCPCS: 99222-AI; 99232-AI; 99233-AI; 99239; A4314; A6550; A9284; C1776; J0692; J1170; J1815; J2250; J2543; J2704; J3010; J3370; J7030; J7040; P9016

== ENCOUNTER 2019-12-29 16:47 | Inpatient (IN) | payer BC ==
[~2019-12-29] VITALS: Ht 167.6 cm; Wt 154.2 kg
[~2019-12-29 16:47] MED LIST changes: +ASPIRIN 32325 MG/TAB PO; +INVANZ INJ1 G/VIAL IV; +LEVOXYL0.15 MG PO; +MAGNESIUM500 MG PO; +NORCO 325 MG-7.1 TAB PO; +SENOKOT8.6 MG PO; +VITAMIN D31000 I1
--- NOTE | 2019-12-29 18:15 | NUR ---
PATIENT ADMIT TO ROOM 340 FROM SURGICAL UNIT VIA W/C, UP IN CHAIR, CHAIR ALARM ON.
--- NOTE | 2019-12-29 18:30 | NUR ---
Patient transfered to [facility]. Oriented to room. Reported off to hotel night auditor.
--- NOTE | 2019-12-29 18:45 | NUR ---
PATIENT UP TO BSC, X1 ASST W/GB & WW. WOUND VAC IN PLACE/FUNCTIONING. OBSERVED EXCORIATED AREA TO TOP PART OF GLUTEAL FOLD, PATIENT STATES STAFF HAS BEEN APPLYING BARRIER CREAM TO EXCORIATED AREA THAT SHE IS NOT SURE IS HELPING MUCH SINCE IT WAS STARTED TODAY.
[2019-12-29 18:54] VITALS: BP 143/61; PULSE 79; TEMP 98.9
--- NOTE | 2019-12-29 19:50 | NUR ---
Up to bedside commode x1 assist walker and gait belt. Assessment complete. Lungs clear. Heart sounds normal. Bowels active x4. Pulses present throughout. Right lower extremity edema +1. PICC to right upper arm without complications. Wound vac to right hip in place. Suction on and reddish drainage in tubing. Reports 7/10 pain with ambulation in right hip. Denies other needs at this time. Call light in reach.
[2019-12-29] MEDS ORDERED: NORVASC 5MG5 MG/TAB PO (21:10)
[2019-12-29] MEDS ORDERED: COZAAR 50MG50 MG/TAB PO (21:10)
--- NOTE | 2019-12-30 00:30 | NUR ---
Patient up to bedside commode x1 assist and returned to bed. Denies other needs. Call light in reach.
[2019-12-30 03:39] VITALS: BP 143/97; PULSE 96; TEMP 98.7
--- NOTE | 2019-12-30 03:53 | NUR ---
Patient up to bedside commode. Provided with PRN norco for 7/10 right hip pain. Denies other needs at this time. Call light in reach.
[2019-12-30 04:59] VITALS: BP 143/97; PULSE 96; TEMP 98.7
[2019-12-30 05:34] VITALS: BP 143/97; PULSE 96; TEMP 98.7
[2019-12-30] MEDS ORDERED: OZEMPIC0.25 MG/0. SQ ×2 (06:29→06:40)
[2019-12-30 07:08] LABS: BASO # 0.1 (0.0-0.2); BASO % 0.5 % (0.0-2.0); EOS # 0.1 (0.0-0.7); EOS % 1.2 % (0-4.0); GRAN # 8.1 (1.4-6.5); GRAN % 75.5 % (42.2-75.2); LYMPH # 1.4 (1.2-3.4); LYMPH % 12.7 % (20.0-51.0); MEAN CELL VOLUME 92 fl (80.0-100.0); MEAN CORPUSCULAR HGB CONC 31 g/dl (33.0-37.0); MEAN PLATELET VOLUME 9.8 fl (7.4-10.4); MONO % 9.3 % (1.7-9.3); PLATELET COUNT 386 K/mm3 (130-400); RED BLOOD COUNT 2.68 M/mm3 (4.10-5.30)
[2019-12-30 07:09] LABS: HEMATOCRIT 24.7 % (37.0-47.0); HEMOGLOBIN 7.7 g/dl (12.5-16.0); MEAN CORPUSCULAR HEMOGLOBIN 29 pg (27.0-31.0)
[2019-12-30 07:20] LABS: CALCIUM 8.1 mg/dL (8.4-10.2); CREATININE, serum 0.98 (0.52-1.25); MAGNESIUM 2.2 mg/dL (1.6-2.3); POTASSIUM 3.7 mmol/L (3.4-5.0)
--- NOTE | 2019-12-30 07:24 | NUR ---
Report given to ROSIE Martinez
--- NOTE | 2019-12-30 14:25 | NUR ---
Patient attended all therapies today. Tolerated IV antibiotic this morning. Wound vac dressing came loose and had to be replaced. Ivone/ROSIE and this nurse spent a good 45 minutes to an hour reapplying this vac. Patient was given prn pain meds prior to changing out this wound vac. Dr. Montanez reported that he will want to put on a new wound vac tomorrow morning at 7 AM and will need to have 3 to 4 people to assist him with this undertaking. The [employer] Incision [employer] System and canister has been delivered to [facility]. Charge nurse was made aware of Dr. Montanez request and she said that she would pass this along in report. Dietary spoke with patient today. See new order per Dr. Mccauley to start a multivitamin for patient. Hgb was at 7.7 this morning see new order to start Iron replacement per Dr. Mccauley.
--- NOTE | 2019-12-30 16:19 | NUR ---
Journeyman Millwright met with patient as she is new to [facility]. Patient lives in [place] with her Jay (ph#[phone]) and her primary care physician is Dr. Davey. Patient obtains medications from [facility] in [place] with no difficulties. Patient has a cane and walker but prefers to use her walker. Patient advised that Jay assists her with bathing and dressing. Patient also has [facility] for Home Health. SW provided copy of team conference notes to patient and advised discharge date will be a week from today, 01/06/20. SW contacted patient's , Jay and scheduled family meeting for 01/04/20 @ 3705. CHAPO contacted Jad at [facility] and faxed updates. CHAPO to continue to follow.
[2019-12-30 16:47] VITALS: BP 155/79; PULSE 83; TEMP 98.8
--- NOTE | 2019-12-30 19:30 | NUR ---
PATIENT RESTING IN BED DURING CHANGE OF SHIFT REPORT FROM DAY SHIFT NURSEARYAN. BED ALARM ON. WOUND VAC IN PLACE AND PATENT DURING REPORT. DECREASED ROM AND STRENGTH TO RLE D/T RECENT HIP SURGERY.
--- NOTE | 2019-12-31 00:05 | NUR ---
PATIENT SLEEPING, DOES NOT AWAKEN WHEN DOOR TO ROOM IS OPENED BY STAFF. BREATHING OBSERVED NONLABORED AND EVEN. BED ALARM ON.
[2019-12-31 03:24] VITALS: BP 164/69; PULSE 77; TEMP 98
--- NOTE | 2019-12-31 07:23 | NUR ---
PATIENT RESTING IN BED DURING CHANGE OF SHIFT REPORT GIVEN TO DAY SHIFT NURSECAMILLE. BED ALARM ON.
--- NOTE | 2019-12-31 12:49 | NUR ---
PATIENT WOUND VAC FULL WITH 450MLS OF DARK RED BLOOD PRESENT. WOUND VAC STOPPED. CANISTER CHANGED. WOUND VAC RE-STARTED. DR. MCHUGH TO BE BY THIS AFTERNOON TO CHANGE WOUND VAC TO A NEW MACHINE. PATIENT RATING HER PAIN A 3/10 ON A 0-10 SCALE AND DESCRIBES THE PAIN DULL IN NATURE AND IT IS WORSE WITH MOVEMENT. PT PRESENT IN THE ROOM. NO NEEDS AT THIS TIME.
--- NOTE | 2019-12-31 13:29 | NUR ---
BED ALARM GOING OFF. UNPON ENTRY TO THE ROOM THE PATIENT HAD A SMALL LIQUID INCONTINENT EPISODE OF STOOL. PATIENT CLEANED UP. PATIENT AMBULATED TO BATHROOM WITH STAFF. PATIENT MOVES WELL WITH ONE ASSIST AND WALKER. PATIENT IMPATIENT AND IMPULSIVE. PATIENT HAD MEDIUM SIZED LOOSE STOOL ON TOILET. PERICARE PROVIDED. BARRIER CREAM APPLIED TO SACRUM. PATIENT ASSISTED BACK TO BED. PATIENT COMPLAINING OF NAUSEA AND IS SITTING AT THE EDGE OF THE BED WITH A BASIN. CALL LIGHT WITHIN REACH.
--- NOTE | 2019-12-31 13:45 | NUR ---
RIGHT HIP WOUND VAC REMOVED BY DR. MCHUGH WITH THE ASSISTANCE OF THIS NURSE. PORTABLE WOUND VAC TEGADERM/FOAM DRESSING APPLIED OVER INCISION. AIRSTRIP APPLIED TO DORSAL PORTION OF INCISION. PORTABLE WOUND VAC TO LOW CONTINUOUS SUCTION. PATIENT REPOSITIONED IN BED. PATIENT TOLERATED WELL.
--- NOTE | 2019-12-31 16:10 | NUR ---
PATIENT AMBULATED WITH THIS NURSE TO THE RESTROOM. PATIENT WIPED SELF. PATIENT NOT WEARING PANTS. PATIENT ASSISTED BACK INTO BED. PATIENT NEEDS ASSISTANCE WITH GETTING LEGS INTO BED, OTHERWISE PATIENT TRANSFERS SELF. PATIENT WOUND VAC LEAKING AIR. WOUND VAC DRESSING REINFORCED WITH TEGADERM STRIPS. PRESENT AT THE BEDSIDE. PATIENT DENIES ANY OTHER NEEDS AT THIS TIME.
[2019-12-31 17:16] VITALS: BP 157/69; PULSE 118; TEMP 98.8
--- NOTE | 2019-12-31 19:36 | NUR ---
Received report from ROSIE Park. Pt currently sitting up in bed. When looking over he wound vac with the nurse she stated that she reinforced the dressing because there was a small amount of drainage. At this time there is no drainage at this time. Pt is comfortable in bed and has her call light within reach.
--- NOTE | 2019-12-31 19:36 | NUR ---
REPORT GIVEN TO ROSIE ALAMO.
--- NOTE | 2019-12-31 21:00 | NUR ---
Pt called requesting to go to the bathroom. At this time I noticed drainage from the wound vac site. The dressing was reinforced with a new Air strip, and a half of a ABD dressing to prevent drainage. There was also a large tegaderm placed over dressing at this time. I also noted that the wound vac canister looked full. When to change the canister and noticed that the canister did not fit. Contacted charge nurse and house supervisior at this time. We were able to open a new woundvac box and get a canister that did fit. Everything seems to be working fine. Will monitor for drainage.
--- NOTE | 2020-01-01 00:35 | NUR ---
Pt called out to go to the restroom, pt had no drainage noted at this time. Pt did state that the wound vac wasn't making noise as it was before. I was able to move it around a little and it began to work. I informed the charge nurse and housetrailer servicer. supervisor fabrication is going to look for some new canisters for the wound vac just in case we end up needed them. Pt has her call light within reacha and she was also given fresh ice water and a diet sprite at this time. Call light itis within reach and her bed is in lowest position.
[2020-01-01 05:58] VITALS: BP 148/76; PULSE 62; TEMP 97.8
--- NOTE | 2020-01-01 07:26 | NUR ---
Reported off to ROSIE Park. Pt is currently sitting up in the chair. debone processing supervisor was contacted to get new canisters for the wound vac because the ones that we have don't fit. Pt is dressed and ready for therapy. She has her call light within reach.
--- NOTE | 2020-01-01 10:25 | NUR ---
PATIENT WOUND VAC HAS BEEN FULL SINCE APPROXIMATELY [id number]. DIRECTOR OF CREATIVE SERVICES NURSE UNABLE TO GET NEW CANISTERS FROM THE PLANS EXAMINER. THE CANISTERS ORDERED FOR THE HOME VAC ARE THE WRONG TYPE. ADAPTER PIECE UTILIZED TO CONNECT THE HOME VAC DRESSING TO THE HOSPITAL WOUND VAC. ONCE RE-CONNECTED APPROXIMATELY 50 MLS OF BLOODY RETURN INTO CANISTER AND ABSORBED BY THE POWDER IN THE CANISTER. FOAM DRESSING COMPRESSED WITHOUT ANY LEAKS. WOUND VAC TO LOW CONTINUOUS SUCTION.
--- NOTE | 2020-01-01 11:05 | NUR ---
Admission QIM scores were reviewed by the team. Code of 3 chosen for toileting hygiene was determined by team discussion to be the most usual performance before interventions for this patient during the assessment period. Code of 3 chosen for toilet transfers was determined by team discussion to be the most usual performance for this patient during the assessment period.--Chelsy Guzmán, PD
--- NOTE | 2020-01-01 11:45 | NUR ---
THIS NURSE SPOKE WITH VANCE NICOLE FOR DR. MCHUGH. THIS NURSE INFORMED THAT DR. TOLEDO WILL BE BACK ON SATURDAY TO RESUME PATIENT CARE. HOME WOUND VAC CANISTERS TO BE ADDRESSED BY [facility] ON SATURDAY FOR PENDING DISCHARGE.
--- NOTE | 2020-01-01 16:24 | NUR ---
Protozoologist followed up with patient prior to the weekend. Patient reports she is waiting to hear what the decision is about her wound vac. Patient denies any further questions or concerns at this time. SW to continue to follow.
[2020-01-01 16:49] VITALS: BP 154/77; PULSE 85; TEMP 97.7
--- NOTE | 2020-01-01 19:36 | NUR ---
PATIENT ASSISTED TO BATHROOM BY STAFF. WOUND VAC IN PLACE AND DRAINING LIGHT RED DRAINAGE TO WOUND VAC CANISTER. ~100 ML OUT SINCE WOUND VAC WAS RE-CONNECTED AT 10:25AM. PATIENT STATES THAT THE TRAMADOL IS HELPING WITH THE PAIN. REPORT GIVEN TO ROSIE ANGELA.
--- NOTE | 2020-01-02 04:12 | NUR ---
Patient has been up to the restroom two times this shift. Patient is able to get herself out of bed and to the restroom with minimal help from staff with walker. Patient is able to take care of own toileting needs. Patient has a PICC in the right upper arm blood return noted. Patient also has a wound vac to the right hip set at 125mm outpt so far as been 75mL this shift. At this time patient has stated pain in the right knee is increasing, pain medication given and ice pack applied.
[2020-01-02 05:53] VITALS: BP 126/85; PULSE 77; TEMP 98.1
--- NOTE | 2020-01-02 14:45 | NUR ---
Patient refuses to put on her slip proof socks. Patient also refuses to put on gait belt at times and prefers to not wear it. This nurse continues to educate her on the reason for using the gait belt and that it is IPR protocol. Will continue to educate her on protocols.
[2020-01-02 18:30] VITALS: BP 140/87; PULSE 112; TEMP 99.6
--- NOTE | 2020-01-02 21:11 | NUR ---
APOORVA NOTE: PT AOX4. PLEASANT. REPORTS INCISION PAIN 4 TO 5/10 STINGY TO RT HIP WOUND VAC SITE. SUCTION INTACT WITH 250 MLS SEROSANGUINOUS DRAINAGE CURRENTLY IN CANNISTER. DAYSHIFT CHANGED DRESSING AROUND 1630, PT REPORTS CANNISTER NOT BEEN CHANGED WITH DRESSING THUS UNSURE OF TOTAL IN SHIFT. BLE EDEMA RT 3+ WITH LT 2+ PITTING. REPORTS CHRONIC LOOSE STOOLS WITH ONE THIS EVENING. LCTA. HRRR. DENIES CP, TIERNEY, N/V. ON AIR MATRESS AND REFUSED Q2 TURNS SHE REPORTS SHE CAN GET OUT OF BED BUT NOT TURN
[2020-01-03 05:36] VITALS: BP 136/81; PULSE 107; TEMP 98.3
--- NOTE | 2020-01-03 07:26 | NUR ---
WOUND VAC AMOUNT AT BEGGING OF SHIFT 250MLS, INCREASED TO 50MLS AT END OF SHIFT
--- NOTE | 2020-01-03 07:30 | NUR ---
Bedside shift report received from ROSIE Ma. PT in chair at side of bed eating breakfast, wound vac cannister at 300 ml of sanguinous drainage. will continue to monitor.
--- NOTE | 2020-01-03 08:18 | NUR ---
assessment charted. PT resting in chair, watns to rest today. Pain well controlled with PRN norco. Denies needs. PICC to DEBBIE flushes and good blood return. RLE wound vac draining continuous at 125 mmhg. Pt refusing TEDs and SCDs at this time. CMS intact to RLE. Will continue to monitor.
--- NOTE | 2020-01-03 12:05 | NUR ---
Upon entry into patients room to give noon meds pt was in tears. when prompted she shared that she is frustrated with her current situation. Frustrated with the wound vac and wanting the home vac on instead of this larger vac. She feels that food just doesn't taste good and she struggles to eat solid foods. Denies other issues but appears symptomatically depressed.
--- NOTE | 2020-01-03 15:52 | NUR ---
Pt called for bathroom upon entry alarm on wound vac going off. Resealed wound vac with large tegaderm where leak was located, in pannus area. Seal recaptured. Pt agreeable. Will continue to monitor.
[2020-01-03 17:59] VITALS: BP 149/85; PULSE 80; TEMP 97.7
--- NOTE | 2020-01-03 18:15 | NUR ---
Wound vac seal leaking again, re-sealed again. Pt resting in chair at side of bed eating supper, will give bedside shift report to nightshift nurse who will resume care.
--- NOTE | 2020-01-03 19:50 | NUR ---
PATIENT RESTING IN BED DURING CHANGE OF SHIFT REPORT FROM DAY SHIFT NURSETYLER. BED ALARM ON.
--- NOTE | 2020-01-03 23:00 | NUR ---
PATIENT DENIES ANY NEEDS FOR PAIN MEDS WITH HS MEDS, BED ALARM ON.
--- NOTE | 2020-01-04 01:23 | NUR ---
PATIENT SLEEPING DOES NOT AWAKEN WHEN ROOM IS ENTERED BY STAFF. WOUND VAC ON AND NOT ALARMING.
[2020-01-04 04:24] VITALS: BP 152/87; PULSE 114; TEMP 98.5
--- NOTE | 2020-01-04 04:51 | NUR ---
PATIENT REQUESTING "LIGHT PAIN MED", SEE eMAR FOR MED GIVEN. BED ALARM ON.
--- NOTE | 2020-01-04 06:21 | NUR ---
OBSERVED DRY HEAVES AFTER USING BATHROOM, WITH IV ABX INFUSING, PATIENT STATING SHE THINK SHE IS HAVING NAUSEA WITH ABX. COOL WET WASHCLOTH APPLIED TO BACK OF NECK THAT PATIENT STATES HAD HELPED SOME WITH NAUSEA. DENIES SHORTNESS OF BREATHING/PROBLEMS SWALLOWING/ITCHING/RASH AT THIS TIME.
[2020-01-04 06:58] LABS: BASO % 0.5 % (0.0-2.0); EOS # 0.2 (0.0-0.7); EOS % 2.3 % (0-4.0); GRAN # 5.5 (1.4-6.5); GRAN % 70.9 % (42.2-75.2); LYMPH # 1.2 (1.2-3.4); LYMPH % 15.8 % (20.0-51.0); MEAN CELL VOLUME 94 fl (80.0-100.0); MEAN CORPUSCULAR HGB CONC 30 g/dl (33.0-37.0); MEAN PLATELET VOLUME 9.7 fl (7.4-10.4); MONO # 0.8 (0.1-0.6); PLATELET COUNT 388 K/mm3 (130-400); RED BLOOD COUNT 2.86 M/mm3 (4.10-5.30); REDCELL DISTRIBUTION WIDTH-CV 15.9 % (11.5-14.5)
[2020-01-04 06:59] LABS: HEMATOCRIT 26.8 % (37.0-47.0); HEMOGLOBIN 8.1 g/dl (12.5-16.0); MEAN CORPUSCULAR HEMOGLOBIN 28 pg (27.0-31.0)
[2020-01-04 07:12] LABS: ALBUMIN 2.3 gm/dL (3.5-5.0); BILIRUBIN,TOTAL 0.4 mg/dL (0.0-1.0); C-REACTIVE PROTEIN 1.8 mg/dL (0.0-0.9); CALCIUM 8.1 mg/dL (8.4-10.2); CREATININE, serum 0.88 (0.52-1.25); POTASSIUM 3.3 mmol/L (3.4-5.0); TOTAL PROTEIN 5.3 gm/dL (6.4-8.2)
--- NOTE | 2020-01-04 07:24 | NUR ---
PATIENT RESTING IN BED DURING CHANGE OF SHIFT REPORT GIVEN TO DAY SHIFT NURSEARYAN. BED ALARM ON.
[2020-01-04 08:24] LABS: ERYTHROCYTE SEDIMENTATION RATE 15 mm/hr (0-30)
--- NOTE | 2020-01-04 09:42 | NUR ---
Call placed to Dr. Bhat for ID consult.
--- NOTE | 2020-01-04 12:03 | NUR ---
Dr. Mccauley called regarding low potassium - see new order for one time dose of 40 mg potassium PO per Dr. Mccauley. Will continue to monitor.
--- NOTE | 2020-01-04 13:32 | NUR ---
CHAPO attended a family meeting with the patient and her , Jay. Also present was IPR Director, PT, and OT. IPR Director, Chelsy, started by explaining the purpose of the meeting. PT/OT discussed the patient's progress. Chelsy then discussed how discharge date may tentatively be changed to later in the week, depending on Dr. Hobbs's recommendations. The patient has a wound vac. The patient and her report that they were receiving home health for the IV antibiotics and went to outpatient PT once in [place] before being admitted. The team answered all questions. SW awaiting Dr. Hobbs's recommendations and will continue to follow.
--- NOTE | 2020-01-04 15:30 | NUR ---
PICC intact right upper arm. With sterile technique right upper arm PICC dressing change done with insertion site cleansed with ChloraPrep 1, chlorhexidine impregnated disc applied, skin prep, StatLock, and Tegaderm applied. No signs or symptoms of IV complications noted. No concerns voiced.
--- NOTE | 2020-01-04 16:34 | NUR ---
Patient resting in bed at this time, by her side. Patient and waiting to see when Dr. Smith will be arriving to look at wound. Patient attended all therapies today. Denies questions at this time.
[2020-01-04 18:17] VITALS: BP 125/52; PULSE 126; TEMP 99.2
--- NOTE | 2020-01-04 19:00 | NUR ---
PATIENT RESTING IN BED DURING CHANGE OF SHIFT REPORT FROM DAY SHIFT NURSE, ARYAN. BED ALARM ON. PATIENT'S AT BED SIDE WAITING FOR DR TOLEDO TO SEE PATIENT REGARDING CHECKING ON RIGHT HIP INCISION/WOUND VAC SET UP. CONTACTED TROY WOODARD, CERTIFIED DIETARY MANAGER ORTHO, TO CHECK IF DR TOLEDO IS GOING TO ROUND WITH NO CONFIRMATION OF DR TOLEDO BEING ABLE TO ROUND TODAY BUT MOST LIKELY TOMORROW W/DR TOLEDO TO TAKE PATIENT BACK FOR SURGICAL MANAGEMENT, WILL HAVE TO CONTACT AUGUSTO WOODARD W/DR TOLEDO TO CONFIRM DR TOLEDO TAKING OVER PATIENT'S CARE. INFORMED PATIENT/SPOUSE OF ORTHO ONCALL RESPONSE WITH SPOUSE TO GO HOME AT THIS TIME.
--- NOTE | 2020-01-04 20:00 | NUR ---
WOUND VAC INPLACE TO RIGHT HIP, WITH SUCTION AT 125 MMHG, OBSERVED DRAINAGE MED SEROSANGUINOUS, DENIES ANY JOINT PAIN CURRENTLY. DECREASED ROM TO R HIP D/T SURGERY. DENIES NUMBNESS/TINGLING TO RLE. DENIES CHEST PAIN/SHORTNESS OF BREATH CURRENTLY. BED ALARM ON WHEN IN BED.
--- NOTE | 2020-01-04 20:31 | NUR ---
PATIENT UP TO BATHROOM, DENIES NEED FOR PAIN MEDS AT THIS TIME. BED ALARM ON WHEN BACK IN BED, WOUND VAC DRSG UNDER RIGHT SIDE OF PANIS FOLD TO BE REDONE, WOUND VAC STILL DRAINING, MAINTAINING SUCTION AT THIS TIME WHEN PATIENT BACK IN BED.
--- NOTE | 2020-01-04 22:28 | NUR ---
TEGADERM DRSG TRIMMED AND NEW ADDED TO AREA UNDER RIGHT SIDE OF PANIS, PATIENT TOLERATED WELL, SKIN PREP APPLIED TO AREA OF NEW DRSG APPLICATION PRIOR TO PLACEMENT OF TEGADERM
--- NOTE | 2020-01-05 02:42 | NUR ---
PATIENT SLEEPING, BREATHING NONLABORED AND EVEN. DOES NOT AWAKEN WHEN ROOM ENTERED BY STAFF. WOUND VAC FUNCTION/PATENT, DRAINING SEROSANG DRAINAGE. BED ALARM ON.
[2020-01-05 05:23] VITALS: BP 139/85; PULSE 100; TEMP 98
--- NOTE | 2020-01-05 06:30 | NUR ---
CONTACTED CAMMIE FOR DR TOLEDO, INFORMED OF PATIENT'S CARE TO BE TURNED OVER BACK TO DR TOLEDO FROM DR MCHUGH, INFORMED OF PATIENT'S TENTATIVE D/C AND PATIENT/SPOUSE CONCERNS REGARDING HOME CARE OF WOUND VAC WITH PA PLANNING ON SPEAKING WITH DR TOLEDO FOR FURTHER INSTRUCTIONS/ORDERS NEEDED.
[2020-01-05 08:17] VITALS: BP 114/67
--- NOTE | 2020-01-05 11:09 | NUR ---
Patient has asked to stay with Dr. Montanez instead of being transferred to Dr. Hobbs. This will be communicated to their office.
--- NOTE | 2020-01-05 11:59 | NUR ---
This nurse removed old wound vac dressing and reapplied new wound vac dressing this morning, spending approx. 45 minutes with patient. This nurse observed redness and bloody drainage from the bottom incision. There was more redness to the entire incision then there had been on Saturday when this nurse changed wound vac dressing. Applied desenex powder to panus area where it was red and then applied some skin prep over that area. Patient tolerated well. She was given prn pain meds due to pain and they were effective. She has not had any nausea this morning.
--- NOTE | 2020-01-05 16:02 | NUR ---
Chelsy, IPR Director, informed [facility] that the patient's discharge date has been changed to this Saturday, 01/07. Ortho doctor, Dr. Montanez, is to still meet with the patient on recommendations and the patient is to tentatively need a wound vac. She will also need six weeks of IV antibiotics. [facility]O met with the patient to discuss the IV antibiotics and PT. The patient reports that she is unsure which infusion company she had been set up with prior to being admitted to [facility]. She states that she would like to do outpatient PT at [facility]. [facility]O contacted and secured the patient an appointment at [facility] on Saturday, 01/10, at 1100. CHAPO will need to fax the patient's discharge orders to [facility] at [phone]. CHAPO notified the patient's RN of the appointment. [facility]O then contacted [facility] and the radiology receptionist informed [facility] of the patient's infusion company: [employer]. CHAPO contacted the pharmacist, Trevor, at [employer] (ph#[phone], fax#[phone]). Trevor confirms that they were supplying the patient's IV antibiotics and that they will just need the script for the IV antibiotic on . Trevor reports that they can overnight ship the IV antibiotics to the patient's home on Saturday. CHAPO then contacted and updated Jad at [facility] of the discharge date and plan. [facility] is able to resume services for the patient. CHAPO submitted an order to [facility] for a wound vac for the patient. The [employer] Insurance Authorization Form needs to be signed by Dr. Montanez. [facility]O contacted and faxed the form to [facility]. Johny, RN with Dr. Montanez, reports that Dr. Montanez is not in the clinic now for him to sign the form, but that Dr. Montanez will be up to the hospital tomorrow to visit the patient. CHAPO collaborated with the patient's RN to have Dr. Montanez sign the form when he arrives. The form is on the patient's chart. SW to continue to follow.
[2020-01-05 17:51] VITALS: BP 136/81; PULSE 88; TEMP 98.2
--- NOTE | 2020-01-05 19:00 | NUR ---
PATIENT RESTING IN BED DURING CHANGE OF SHIFT REPORT FROM DAY SHIFT NURSEARYAN. BED ALARM ON.
--- NOTE | 2020-01-05 20:44 | NUR ---
Dressing was changed this morning, Dr. Montanez will be continuing patient care instead of Dr. Hobbs. Patient sent pictures via her phone to Ortho today so Dr. Montanez is aware of how the wound looked this morning prior to dressing change. Dressing will need to be changed every 48 hours unless there is a break in the seal and it needs to be changed.
--- NOTE | 2020-01-06 | NUR ---
PATIENT SLEEPING AND DOES NOT AWAKEN WHEN ROOM ENTERED BY STAFF. BREATHING NONLABORED AND EVEN. BED ALARM ON.
[2020-01-06 05:43] VITALS: BP 152/59; PULSE 72; TEMP 97.8
--- NOTE | 2020-01-06 07:30 | NUR ---
PATIENT UP IN CHAIR DURING CHANGE OF SHIFT REPORT GIVEN TO DAY SHIFT NURSESUMMER. WOUND VAC WITH NO CHANGE IN SETTING.
--- NOTE | 2020-01-06 07:30 | NUR ---
Drainage discussed with Dr Montnaez. Orders to obtain CRP if one not done recently.
--- NOTE | 2020-01-06 10:00 | NUR ---
Alem, with [facility], contacted [facility] and requested clinicals on the patient. Alem reports that she will also need the signed script by Dr. Montanez for her to be able to submit to insurance. [facility]O faxed the patient's clinicals to Alem. CHAPO staffed with the patient's RN on having Dr. Montanez sign the form when he arrives to see the patient. SW to continue to follow. [facility]: #[phone] ext. [phone] fax#[phone]
--- NOTE | 2020-01-06 11:25 | NUR ---
Dr. Montanez signed the script. [facility] contacted and faxed the script to [facility]. Radha reports that her and Alem will be working on getting the patient's information submitted to insurance today. [facility]O to continue to follow. [facility] Rep: [phone].
[2020-01-06] MEDS ORDERED: INVANZ INJ1 G/VIAL IV (14:43)
--- NOTE | 2020-01-06 16:16 | NUR ---
[facility]O contacted and faxed the patient's IV antibiotic script to Trevor at [facility]. Trevor reports that they will be delivering the antibiotics to the patient's home on Saturday. CHAPO then met with the patient and presented and reviewed the IPR Team Conference Note with the patient and updated her on the above information. The patient is agreeable with the plan for the Saturday discharge. She is hopeful that her wound vac will be approved tomorrow. [facility]O to continue to follow.
[2020-01-06 16:41] VITALS: BP 131/50; PULSE 75; TEMP 98.9
[2020-01-07 04:48] VITALS: BP 132/62; PULSE 71; TEMP 98.7
--- NOTE | 2020-01-07 11:04 | NUR ---
Pt napping upon entry, easily awakened, has C/O pain and medications given for relief. shift assessments complete, left Pt call light in reach, sitting in the recliner.
[2020-01-07 16:15] VITALS: BP 132/52; PULSE 78; TEMP 99.1
--- NOTE | 2020-01-07 16:47 | NUR ---
Radha, at [employer], reports that that she has still not received authorization from [employer]. Radha reports that sometimes [employer] will respond faster if they have a Certificate of Medical Necessity Form signed by the doctor. A form was faxed to [facility]. [facility]O contacted Colleen at [facility] and faxed them the form for Dr. Montanez to sign. [facility]O received the signed form back, via fax, signed by Diandra Hilliard PA-C. [facility]O faxed the signed form to [facility]. [facility]O to continue to follow.
--- NOTE | 2020-01-07 19:00 | NUR ---
PT UP TO BR WITH WALKER. VOIDED WITH LG LOOSE DARK BM. NEEDED ASSIST WITH HYGEINE. SL REDDNESS TO TOP OF GLUT CLEFT. BACK TO BED. WOUND VAC INTACT. NO LEAKAGE NOTED. ABLE TO GET IN AND OUT OF BED PER SELF. MOD IN ROOM. DENIES PAIN AT THIS TIME.
[2020-01-07 22:36] VITALS: TEMP 99.3
[2020-01-08 05:35] VITALS: BP 130/60; PULSE 73; TEMP 98.6
[2020-01-08 08:00] LABS: CALCIUM 8.1 mg/dL (8.4-10.2); CREATININE, serum 0.94 (0.52-1.25); POTASSIUM 3.8 mmol/L (3.4-5.0)
--- NOTE | 2020-01-08 10:40 | NUR ---
Waiting for wound vac to arrive. Meds have been shipped to her house for the antibiotic. Right now patient is resting in recliner, call light in reach and watching TV.
[2020-01-08] MEDS ORDERED: FERRO-TIME325 MG PO (11:15)
[2020-01-08] MEDS ORDERED: TYLENOL 325MG325 MG PO (11:16)
[2020-01-08] MEDS ORDERED: ASPIRIN 32325 MG/TA1 PO (11:16)
[2020-01-08] MEDS ORDERED: ZINC OXIDE 28GM TOP (11:17)
[2020-01-08] MEDS ORDERED: MEN'S ONE DAIL1 EACH PO (11:17)
[2020-01-08] MEDS ORDERED: Desenex/Lotrimin AF TP (11:17)
[2020-01-08] MEDS ORDERED: NORCO 325 MG-51 TAB PO (11:22)
--- NOTE | 2020-01-08 14:01 | NUR ---
Discharge QIM scores were reviewed by the team. Code of 6 chosen for toileting hygiene was determined by team discussion to be the most usual performance for this patient during the assessment period.--Chelsy Guzmán, PD
--- NOTE | 2020-01-08 17:26 | NUR ---
Radha, at [facility], reports that they are on hold with the patient's insurance and are working on getting a verbal auth. She states that this can sometimes take a few hours. [facility]O then followed up with Radha. Radha reports that she has still not received auth and that they may not get it until later this evening or tomorrow. She states that they can contact the patient's RN, if they do get the auth. CHAPO updated IPR Director, Chelsy. [facility]APO, the patient's RN, and Chelsy updated the patient and patient's . The patient to stay here, until the wound vac is approved. Her and her report that they would feel more comfortable having that wound vac, instead of going home without it. [facility]APO attempted to contact Radha at [facility] to provide her with the RN's phone number. CHAPO left her a voicemail with the RN's phone number. [facility]O updated [facility]. SW to continue to follow.
--- NOTE | 2020-01-08 20:00 | NUR ---
PT UP TO BR. HAD VOID WITH DARK BROWN LOOSE STOOL. NEEDED ASSIST WITH HYGEINE. ZINC OINTMENT APPLIED R/T EXCORIATION. READY FOR BED. NEEDED ASSIST LIFTING LEGS INTO BED. WOUND VAC INTACT TO RT HIP THAT RADIATES DOWN TO KNEE. SEE MAR FOR PAIN MEDS GIVEN. CALL LIGHT IN REACH.
--- NOTE | 2020-01-08 20:33 | NUR ---
Dressing changed to right hip incision. Bloody drainage obsered from the site. Incision site was less red then last dressing change. Desenex powder applied under pannus area and patted with skin prep. Incision was redressed and applied foam and tegaderm to secure area. Patient tolerated well. All f/u appointments were made for patient. Insurance for wound vac has not been approved yet so patient will be staying through the weekend unless [employer] calls with news of an approval. Patient's wound vac was delivered, but Non Destructive Testing Inspector took the box to storage until patient is ready for discharge. did observe wound dressing change and canister replacement of device. Currently patient is resting in recliner denies any questions.
[2020-01-09 05:53] VITALS: BP 143/84; PULSE 86; TEMP 98.5
--- NOTE | 2020-01-09 06:00 | NUR ---
PT TOLERATING WOUND VAC WELL. NO AIR LEAKS.
--- NOTE | 2020-01-09 06:26 | NUR ---
PT UP IN CHAIR LEGS RECLINED. REQUEST PAIN MED. SEE MAR. RT ANTERIOR THIGH NERVE PAIN AND ACHE. INVANZ STARTED PER PICC TO PURPLE PORT. ATTEMPTED TO FLUSH RED PORT. VERY SLUGGISH. UNABLE TO PULL ANY BLOOD BACK. WOUND VAC INTACT WITH CONT SUCTION. 50CC RED DRAINAGE NOTED.
--- NOTE | 2020-01-09 08:00 | NUR ---
Patient in bed resting. Alert and oriented x 3. Assessment complete. Wound Vac to right hip, dressing intact. Edema +2 noted to BLE. Denies pain at this time. Denies further needs at this time. Patient in dependent in room with walker.
[2020-01-09 16:47] VITALS: BP 134/64; PULSE 78; TEMP 99.1
--- NOTE | 2020-01-09 18:38 | NUR ---
Patient has done well throughout the day. Minimal needs. Independent in room. Denies pain throughout the day. WIll report off to retail shift manager.
--- NOTE | 2020-01-09 22:00 | NUR ---
PT IN BED RESTING. DENIES PAIN AT THIS TIME. WOUND VAC CONT TO SUCTION. SMALL AMT DRG RT HIP WOUND. MOD I IN ROOM. INNER BUTTOCK EXCORIATED. ZINC APPIED. NO NEED AT THSI TIME. CALL LIGHT IN REACH, BED ALARMS OFF.
[2020-01-10 05:54] VITALS: BP 147/76; PULSE 81; TEMP 97.6
--- NOTE | 2020-01-10 06:20 | NUR ---
PT UP IN RECLINER THIS AM. HAVING RT HIP PAIN. LEVEL 4-5. SEE MAR FOR PAIN MED GIVEN. IV ABT STARTED PER PICC. NO OTHER NEEDS NOTED. QUIET NIGHT.
--- NOTE | 2020-01-10 17:00 | NUR ---
PATIENT INDEPENDENT IN THE ROOM. PATIENT GIVEN PAIN MEDICATION NEEDED THROUGHOUT THE SHIFT. RIGHT HIP HEMOVAC DRESSING CD&I. DARK REDDISH-BROWN FOAMY DRAINAGE PRESENT IN WOUND VAC CANISTER. WOUND VAC TO LOW CONTINUOUS SUCTION WITH SUCTION SET AT 125.
[2020-01-10 17:06] VITALS: BP 136/80; PULSE 84; TEMP 98.5
--- NOTE | 2020-01-10 19:08 | NUR ---
REPORT GIVEN TO ROSIE DUVALL.
--- NOTE | 2020-01-11 04:54 | NUR ---
PT PLACED ON BED MODI. PASSING FLATUS. HAS NOT SLEPT WELL THIS SHIFT.
[2020-01-11 05:37] VITALS: BP 139/65; PULSE 78; TEMP 98.8
--- NOTE | 2020-01-11 05:39 | NUR ---
PT SITTING IN RECLINER. WOUND VAC INTACT WITH NO LEAKAGE. PT REQUESTED PAIN MEDICATION THIS AM. ACCUCHECK [phone].
--- NOTE | 2020-01-11 09:01 | NUR ---
PATIENT RESTING IN THE BEDSIDE CHAIR THIS MORNING. PATIENT RATING HER PAIN A 2/10 IN THE RIGHT HIP. RIGHT HIP WOUND VAC TEGADERM DRESSING IS CD&I. WOUND VAC TO LOW CONTINUOUS SUCTION WITH REDDISH-BROWN DRAINAGE PRESENT IN THE WOUND VAC CANISTER. CALL LIGHT WITHIN REACH. PATIENT DENIES ANY NEEDS AT THIS TIME.
--- NOTE | 2020-01-11 09:52 | NUR ---
SW attempted to contact Radha, [facility] Rep, to follow up about wound vac. Insurance has not yet approved it. SW to continue to follow.
--- NOTE | 2020-01-11 11:40 | NUR ---
PICC intact right upper arm. With sterile technique right upper arm PICC dressing change done with insertion site cleansed with ChloraPrep 1, chlorhexidine impregnated disc applied, skin prep, StatLock, and Tegaderm applied. No signs or symptoms of IV complications noted. No concerns voiced. Arm wrapped with Sharan to protect catheter.
[2020-01-11 16:53] VITALS: BP 131/7; PULSE 120; TEMP 98.2
--- NOTE | 2020-01-11 20:01 | NUR ---
PATIENT SITTING UP IN THE CHAIR THIS EVENING. WOUND VAC DRAINING REDDISH-BROWN DRAINAGE TO WOUND VAC CANISTER. 400 MLS OF DRAINAGE PRESENT IN CANISTER AT THIS TIME. WOUND VAC TO LOW CONTINUOUS SUCTION AT 125. CALL LIGHT WITHIN REACH. PATIENT DENIES ANY NEEDS AT THIS TIME. REPORT GIVEN TO ROSIE ALAMO.
--- NOTE | 2020-01-11 20:12 | NUR ---
Received report from ROSIE Park. Pt currently sittin up in her chair and has her call shannon king.
--- NOTE | 2020-01-12 03:00 | NUR ---
Pt curently up in the restroom. Pt abmulated to the restroom and back to bed. Pt has her call light within reach.
[2020-01-12 06:15] VITALS: BP 136/79; PULSE 124; TEMP 98.2
--- NOTE | 2020-01-12 06:30 | NUR ---
Pt wound vac canister has 450ml of drainage at this time.Pt is currently sitting up in the chair at this time. Pt has her call light evans king.
--- NOTE | 2020-01-12 07:40 | NUR ---
Reported off to ROSIE Martinez. pt is currently sitting up in bed and her call light is within reach.
--- NOTE | 2020-01-12 09:59 | NUR ---
Patient attending therapies this morning. Dr. Hobbs's PA stopped by this morning to see patient and wound vac will be replaced this afternoon following therapies. Patient had a bowel movement this morning when with therapy. Denies questions at this time. Independent with eating and grooming. Denies need for pain meds this morning. Will continue to monitor.
--- NOTE | 2020-01-12 11:29 | NUR ---
Chelsy, IPR Director, spoke to Radha with [employer] yesterday. They are still awaiting auth. [facility]O attempted to contact Radha today. CHAPO left her a voicemail. SW to continue to follow.
--- NOTE | 2020-01-12 15:14 | NUR ---
Patient reported that she called [employer] and they updated her on where the approval process is at with her wound vac. Patient requested something for anxiety see new order for xanax per Dr. Mccauley. Both of patient's ports are not getting any return this afternoon. Adri was called awaiting her arrival to help with getting them to work again. Patient is sitting in recliner at this time, call light in reach and by her side. Will continue to monitor.
[2020-01-12 15:40] LABS: BASO # 0.1 (0.0-0.2); BASO % 0.6 % (0.0-2.0); EOS # 0.3 (0.0-0.7); GRAN # 5.4 (1.4-6.5); GRAN % 67.5 % (42.2-75.2); LYMPH # 1.4 (1.2-3.4); MEAN CELL VOLUME 93 fl (80.0-100.0); MEAN CORPUSCULAR HGB CONC 31 g/dl (33.0-37.0); MEAN PLATELET VOLUME 9.8 fl (7.4-10.4); MONO # 0.8 (0.1-0.6); MONO % 9.6 % (1.7-9.3); PLATELET COUNT 378 K/mm3 (130-400); RED BLOOD COUNT 3.26 M/mm3 (4.10-5.30); REDCELL DISTRIBUTION WIDTH-CV 15.2 % (11.5-14.5)
[2020-01-12 15:48] LABS: HEMATOCRIT 30.2 % (37.0-47.0); HEMOGLOBIN 9.2 g/dl (12.5-16.0); MEAN CORPUSCULAR HEMOGLOBIN 28 pg (27.0-31.0)
[2020-01-12 15:53] LABS: ALBUMIN 2.8 gm/dL (3.5-5.0); BILIRUBIN,TOTAL 0.3 mg/dL (0.0-1.0); CALCIUM 8.5 mg/dL (8.4-10.2); CREATININE, serum 0.89 (0.52-1.25); POTASSIUM 4.3 mmol/L (3.4-5.0)
[2020-01-12 16:03] LABS: ERYTHROCYTE SEDIMENTATION RATE 24 mm/hr (0-30)
--- NOTE | 2020-01-12 17:08 | NUR ---
Patient's ordered food for it to be delivered. Patient is a diabetic and they did not order food for a diabetic diet. Will monitor patient carefully tonight. Patient currently resting in bed with by her side.
--- NOTE | 2020-01-12 18:31 | NUR ---
Replaced wound vac to patient's right hip. Old dressings removed and cortes are intact with some blood tinged clear drainage seeping from lower incision. Area around incision is slightly red. Skin around incision was cleaned patted dry and applied desenex powder over red areas then applied skin prep over the desenex powder. Sponge was secured over incision securing with wound care tape. Wound vac was attached and is currently running at 125 at this time. Patient given prn pain meds prior to dressing change. Small area to the posterior of the right hip bottom incision was not covered with wound vac, but only a 4x4 gauze and tegaderm tape due to it not having any drainage. Will continue to monitor.
[2020-01-12 18:35] VITALS: BP 138/57; PULSE 120; TEMP 99.3
[2020-01-13 04:13] VITALS: BP 148/87; PULSE 119; TEMP 98.7
--- NOTE | 2020-01-13 04:33 | NUR ---
Pateint has been resting in bed this shift. Wound vac has had minimal output this shift. No complaints of pain. Patient has been afebrile, antibitoics given as ordered.
--- NOTE | 2020-01-13 10:14 | NUR ---
Alem, at [facility], contacted [facility] and requested the patient's current wound measurements. CHAPO collaborated with the patient's RN and obtained measurements. CHAPO contacted and faxed the current measurements to Alem. Alem states that she will now give Trae a call. CHAPO to continue to follow.
--- NOTE | 2020-01-13 11:26 | NUR ---
Patient attended therapy this morning. Ortho stopped by to see patient this morning and she observed wound dressing. Ortho PA was okay with removing every other staple from right hip anterior portion of hip incision. This will be completed with change of dressing that should occur tomorrow. There is still some drainage observed to left posterior portion of incision that is causing the gauze dressing to turn yellow. Juan David WOODARD was okay with the dressing as it currently is. Will continue to monitor.
--- NOTE | 2020-01-13 11:37 | NUR ---
Patient is currently waiting on approval for wound vac so that she can be discharged. Attending therapies this morning.
--- NOTE | 2020-01-13 17:01 | NUR ---
Alem, at [facility], reports that [employer] is denying the wound vac due to the wound having no depth. CHAPO notified IPR Director, Chelsy, of this. Awaiting Ortho's recommendations. CHAPO also met with the patient to present and review the IPR Team Conference Note. She had no other questions for SW at this time. SW to continue to follow.
[2020-01-13 17:57] VITALS: BP 153/84; PULSE 117; TEMP 98.6
--- NOTE | 2020-01-13 20:30 | NUR ---
PT HAD BEEN UP TO BR. VOIDING W/O DIFFICULTY. MOD I IN ROOM. MANAGING WELL WITH THAT. WOUND VAC DRAINING GREENISH DRAINAGE. PT TOLERATING WELL. REQUEST PAIN MED. SEE MAR. NO OTHER NEEDS AT THIS TIME.
--- NOTE | 2020-01-13 20:36 | NUR ---
Patient attended all therapies today. Wound vac dressing is clean dry and intact and seems to be functioning properly. There is not as much drainage coming from wound today. This nurse spoke with Ivone Charge Nurse and had her look at the dressing and wound vac to make sure that there was nothing wrong with its functioning. She reported that it looked like it was working properly and that the wound vac was not making any alarm sounds to show any leakage to the wound dressing. So just monitored it this shift. This will be reported to Dr. Hobbs's tomorrow upon dressing change that is due. Patient was informed that the approval for the wound vac did not go through. This was communicated to Chelsy and she will be taking care of the follow up regarding this.
[2020-01-14 05:36] VITALS: BP 119/59; PULSE 76; TEMP 98.6
--- NOTE | 2020-01-14 15:41 | NUR ---
Tracy, Clinician at [facility], contacted SW to inform that they need the depth of the wound to overturn insurance's denial. She states that once Ortho gives us that measurement or recommendations to contact her at [phone] ext. [phone] and fax the notes to [phone]. Trcay reports that will also need to fax Ortho's note with the [facility] measurements to [facility]. The cover sheet will need to read: Attention: Latonia King, fax#[phone] Call Center [address] [place] [address] Ref#[id number]
[2020-01-14 18:32] VITALS: BP 114/63; PULSE 123; TEMP 99.2
--- NOTE | 2020-01-14 20:00 | NUR ---
PT RESTING IN BED. JUST LEFT. PT DENIES NEED FOR PAIN MED. MOD I IN ROOM WITH WALKER. WOUND VAC INTACT W/ NO LEAKAGE NOTED. PT MORE CONVERSIVE TONIGHT. NO NEEDS AT THIS TIME.
[2020-01-15 05:31] VITALS: BP 132/56; PULSE 76; TEMP 97.7
--- NOTE | 2020-01-15 05:54 | NUR ---
PT RELATES SHE SLEPT WELL. DENIES COMPLAINTS AT THIS TIME.
--- NOTE | 2020-01-15 06:15 | NUR ---
DR TOLEDO HERE TO SEE PT. TOOK OFF WOUND VAC. NEW ORDERS TO DC AMY. WILL GO HOME WITH HOME HEALTH FOR IV ABT AND DRSG CHANGES EVERYDAY. AMY DC'D WITH SOME BURIED. SUTURES STILL INTACT. STERI STRIPS APPLIED. TELFA, 4X4 GAUZE, ABD DRSG APPLIED. PT NILO WELL. SHIFT REPORT GIVEN TO JESS VELEZ.
--- NOTE | 2020-01-15 09:00 | NUR ---
Patient resting in bedside chair at this time. Patient is alert and oriented, answers questions appropriately. Dressing previously applied to right hip area is leaking serosanguinous drainage. Redressed with telfa, several ABDs and hypafix. Patient was able to stand for the duration of the dressing change and tolerated well. Patient denies pain or needs at this time, call light within reach.
--- NOTE | 2020-01-15 13:40 | NUR ---
Per Ortho, patient will discharge home without wound vac. CHAPO contacted Milly at [facility] who advised she would update everything on KC and did not need anything else from CHAPO. CHAPO contacted Leon at [facility] in [place] to provide update. CHAPO faxed discharge orders for PT/Custodial/Wound Care. CHAPO contacted Leon and confirmed they received orders. Leon reports they have everything they need. CHAPO contacted Ramiro Background Investigator about picking up wound vac as patient will not be going home with it. No additional needs at this time.
--- NOTE | 2020-01-15 14:37 | NUR ---
1430- Pt. sb for transfer to and able to do wc for 50 ft and requests nurse to transfer rest of way out to truck for discharge; pt. does not want any instruction on transfer as she already knows and has been doing from when she had surgery; pt. stands from with R hand onto walker and with step-up stool side steps onto it and brings R foot onto the step-up, then L foot onto truck running board then R foot after sits onto passenger seat; brings both lowers into truck and fastens the seatbelt. pt. did transfer safely and rated 5.
--- NOTE | 2020-01-15 16:00 | NUR ---
Discharge teaching completed. Discussed discharge instructions, follow up appointments, follow up labs, discharge medications, and PICC discharge instructions for home health. Patient and verbalized understanding and denied questions or needs. Dressing to right hip was changed due to saturation prior to discharge. Patient escorted to ED entrance via wheelchair, where she entered a private vechicle.
== END 2020-01-15 14:00 | disposition home or self-care (01) | DRG 949 ==
PROVIDERS: ADMIT Internal Medicine
DX: T84.51XD Infection and inflammatory reaction due to internal right hip prosthesis, subsequent encounter (principal); D62 Acute posthemorrhagic anemia; Y83.9 Surgical procedure, unspecified as the cause of abnormal reaction of the patient, or of later complication, without mention of misadventure at the time of the procedure; F32.9 Major depressive disorder, single episode, unspecified; F41.9 Anxiety disorder, unspecified; E11.9 Type 2 diabetes mellitus without complications; I10 Essential (primary) hypertension; R00.0 Tachycardia, unspecified; E03.9 Hypothyroidism, unspecified; R09.02 Hypoxemia; E87.6 Hypokalemia; H16.429 Pannus (corneal), unspecified eye; B95.61 Methicillin susceptible Staphylococcus aureus infection as the cause of diseases classified elsewhere; R52 Pain, unspecified; E66.9 Obesity, unspecified; Z79.84 Long term (current) use of oral hypoglycemic drugs; Z79.891 Long term (current) use of opiate analgesic; Z96.651 Presence of right artificial knee joint
CPT/HCPCS: 99222-AI; 99231-AI; 99232-AI; 99239; J1335; J1815

== ENCOUNTER → 2020-01-28 | Outpatient (CLI) | payer BC ==
[~2020-01-28] MED LIST changes: +ASPIRIN 32325 MG/TA1 PO; +Desenex/Lotrimin AF TP; +FERRO-TIME325 MG PO; +MEN'S ONE DAIL1 EACH PO; +NORCO 325 MG-51 TAB PO; +TYLENOL 325MG325 MG PO; +ZINC OXIDE 28GM TOP
== END ==
LOC: ZCOL.LAB 14:45
DX: Z22.321 Carrier or suspected carrier of Methicillin susceptible Staphylococcus aureus (principal); A49.1 Streptococcal infection, unspecified site

== ENCOUNTER → 2020-04-12 | Outpatient (CLI) | payer BC | LOC: ZCOL.LAB 13:27 | DX: A49.1 Streptococcal infection, unspecified site (principal); Z22.321 Carrier or suspected carrier of Methicillin susceptible Staphylococcus aureus; T81.49XA Infection following a procedure, other surgical site, initial encounter ==